=== PATIENT | male | born 1980 | race Caucasian/White ===

== ENCOUNTER 2021-07-31 08:04 | Emergency (ER) | payer OTHER, SELFPAY ==
[2021-07-31 08:24] VITALS: BP 139/96; PULSE 84; RESP 16; TEMP 36.8; O2SAT 97; BMI 28.2
--- NOTE | 2021-07-31 08:56 | ED.URI ---
HPI - URI/Sore Throat General Chief Complaint: Upper Respiratory Symptoms Stated Complaint: asthma Time Seen by Provider: 07/31/21 08:53 Source: patient Mode of arrival: ambulatory Limitations: no limitations History of Present Illness HPI Narrative: chest pain, asthma and hurts to breath for months. Patient has a history of asthma feels that this is all his asthma. patient has no medications for his asthma, current smoker, not vaccinated against COVID. MD elicited complaint: cough Pertinent past history: asthma Onset (ago): month(s) Consistency: intermittent Severity: mild Exacerbating factors: exertion and deep breaths Associated symptoms: denies other symptoms Related Data Previous Rx's Medication Instructions Recorded albuterol sulfate 90 mcg/actuation 2 puff INHALATION Q4-6H PRN #8.5 g 07/31/21 aerosol inhaler prednisone 20 mg tablet 60 mg PO DAILY #12 tab 07/31/21 Allergies Allergy/AdvReac Type Severity Reaction Status Date / Time Sulfa (Sulfonamide Allergy Unknown UNKNOWN Unverified 07/12/20 15:35 Antibiotics) Review of Systems Constitutional: Constitutional: Reports no additional constitutional complaints Eyes: Eyes: Reports no additional eye complaints ENT: Denies dizziness Cardiovascular: Cardiovascular: Reports no additional cardiovascular complaints Respiratory: Respiratory: Reports as per HPI Gastrointestinal: Gastrointestinal: Reports no additional gastrointestinal complaints Musculoskeletal: Musculoskeletal: Reports no additional musculoskeletal complaints Integumentary/Breasts: Skin/Breast: Denies rash Neurologic: Reports system reviewed and no additional complaints, except as documented, Denies dizziness and Denies Sensory deficit (Neuro) Psychiatric: Psychiatric: Denies anxiety [facility] Past Medical History Medical History Asthma Social History Social History Advance Directives: No Advance Directives Information Provided: No Physical Exam Vital Signs: Vital Signs: Last Vital Signs Temp 98.2 F 07/31/21 08:24 Pulse 84 07/31/21 08:24 Resp 16 07/31/21 08:24 BP 139/96 H 07/31/21 08:24 Pulse Ox 97 07/31/21 08:24 Body Mass Index 28.2 Const: General: healthy appearing Nutritional Appearance: average body habitus Orientation/consciousness: oriented to person and patient oriented x3 Limitations: no limitations HENMT: Head: Yes normal to inspection Ears: external ears normal General nose exam: Normal external nose present Mouth: Normal oral and palatal mucosa present and oropharynx normal Throat: Yes posterior oropharynx normal Eyes: General: appearance normal, both eyes and all related structures Neck: Other: supple Neck: Yes normal visual inspection Chest: Chest palpation & inspection: normal inspection of the chest Resp: Other: wheezing right side, cough. Cardio: Jugular venous distension: no JVD Rate: regular rate Rhythm: regular rhythm Heart sounds: S1 normal heart sound present and S2 normal heart sound present GI: Inspection: Yes normal to inspection Palpation (GI): Soft to palpation, nontender and No hepatosplenomegaly present Auscultation: normal bowel sounds : General: Yes no CVA tenderness Back/Spine/Pelvis: Back: no CVA tenderness Skin: General skin exam: no rashes or lesions noted Neuro: General: oriented to person and patient oriented x3 Cranial nerves: Yes CN's II-XII intact bilaterally Motor exam (neuro): 5/5 motor strength present throughout Sensory Exam: No Sensory deficit (Neuro) Extrem: General: Yes normal to inspection Psych: Appearance: grossly normal Course Reevaluation(s) Reevaluation #1: patient with slight wheeze, COVID negative will dc on Albuterol, and prednisone Time: 10:26 MDM - URI/Sore Throat Lab Data Labs: Lab Results 07/31/21 Range/Units 08:58 COVID-19 (MATHEUS) Negative (Negative) COVID-19 Clin Com See Note Discharge Plan Discharge Clinical Impression: Asthma attack Qualifiers: Asthma severity: mild Asthma persistence: persistent Qualified Code(s): J45.31 - Mild persistent asthma with (acute) exacerbation Patient Disposition: Home, Self-Care Instructions: Asthma (ED) Prescriptions: New prednisone 20 mg tablet 60 mg PO DAILY Qty: 12 RF: 0 albuterol sulfate 90 mcg/actuation HFA aerosol inhaler 2 puff inhalation Q4-6H PRN (Reason: shortness of breath or wheezing) Qty: 8.5 RF: 0 Referrals: Physician,None [Primary Care Provider] - 1 week
[2021-07-31] MEDS: predniSONE 20 MG TABLET 60 MG PO (09:31)
[2021-07-31] MEDS: Albuterol Sulfate 90 MCG 8 GM INHALER 4 PUFF INHALE (09:33)
[2021-07-31 09:34] LABS: COVID-19 Test Negative (Negative); IDNOW Serial# 9DD0AD1C
== END 2021-07-31 10:42 | disposition home or self-care (01) ==
PROVIDERS: Emergency Provider Emergency Medicine
DX: J45.31 Mild persistent asthma with (acute) exacerbation (principal); Z20.822 Contact with and (suspected) exposure to COVID-19
CPT/HCPCS: 36415; 87635; 94640; 99283; 99284

== ENCOUNTER 2022-10-25 09:55 | Emergency (ER) | payer MEDICAID, SELFPAY ==
--- NOTE | ~2022-10-25 | CT_ITS ---
EXAMINATION: CT ABDOMEN AND PELVIS WITH CONTRAST CLINICAL INFORMATION: Nausea vomiting and epigastric abdominal pain COMPARISON: CT abdomen pelvis 06/04/2013 TECHNIQUE: Multidetector volumetric images were obtained from the superior aspect of the liver through the pubic symphysis following administration 85 mL of Omnipaque 350 intravenous contrast. Sagittal and coronal reformatted images were obtained on the technologist's workstation. Oral contrast: No This CT examination was performed using dose optimization techniques as appropriate, variously including the following: *Automated exposure control *Adjustment of mA and/or kV according to patient size (this includes techniques or standardized protocols for targeted exams where dose is matched to indication/reason for exam; i.e. extremities or head) *Use of iterative reconstruction technique DLP: 518 mGy-cm FINDINGS: LUNG BASES: The visualized lung bases are unremarkable. LIVER, GALLBLADDER, AND BILIARY TREE: The liver is normal in size, shape, and attenuation. No focal hepatic lesion or biliary ductal dilatation is present. Status post cholecystectomy. PANCREAS: Unremarkable. SPLEEN: Unremarkable. ADRENAL GLANDS: Unremarkable. KIDNEYS AND URETERS: The kidneys are normal in size, shape, and attenuation. No hydronephrosis, hydroureter, or calculi seen. No perinephric stranding. BLADDER: Unremarkable. GASTROINTESTINAL TRACT: Possible small hiatal hernia. Stomach is otherwise unremarkable. Mild sigmoid diverticulosis. No evidence of acute diverticulitis. The colon is decompressed. No dilated bowel loops. No bowel wall thickening. Normal appendix. No free air or ascites. ABDOMINAL WALL: Tiny fat-containing umbilical hernia. LYMPH NODES: No lymphadenopathy. VASCULAR: Normal caliber abdominal aorta. Mild scattered vascular calcifications. PELVIC VISCERA: Unremarkable. OSSEOUS STRUCTURES: No acute fracture or suspicious osseous lesion. CT/CT abdomen pelvis w IV con IMPRESSION: 1. No acute intra-abdominal process identified. 2. Sigmoid diverticulosis. No evidence of acute diverticulitis.
--- NOTE | ~2022-10-25 | XR_ITS ---
EXAMINATION: CR CHEST CLINICAL INFORMATION: Cough. COMPARISON: None TECHNIQUE: Frontal view of the chest was obtained. FINDINGS: The cardiomediastinal silhouette is within normal limits in size. Lungs bilaterally are symmetrically well-inflated. There is mild thickening of the central airways. No focal consolidation, effusion or pneumothorax is seen. Bony structures are unremarkable. XR/XR chest 1V IMPRESSION: Mild thickening of the central airways, suggesting reactive airways disease or bronchitis. No focal pneumonia.
[2022-10-25 09:56] VITALS: BP 144/98; PULSE 83; RESP 18; TEMP 36.4; O2SAT 99; BMI 27.4
--- NOTE | 2022-10-25 10:07 | ED.NAVMDI ---
HPI - Nausea/Vomiting/Diarrhea General Chief complaint: Nausea/Vomiting/Diarrhea Stated complaint: vomiting x 2-3 days Time Seen by Provider: 10/25/22 10:06 Source: patient Mode of arrival: ambulatory History of Present Illness HPI Narrative: 42-year-old male with past medical history of asthma, cholecystectomy, presenting to the ED complaining of upper abdominal discomfort, nausea, vomiting, chills, subjective fever, cough x3 days. Reports decreased p.o. intake. Denies diarrhea/constipation, dysuria/hematuria, recent travel, suspicious food intake, sick contacts, recent antibiotics MD elicited complaint: nausea, vomiting and abdominal pain Onset (ago): day(s) Related Data Previous Rx's Medication Instructions Recorded albuterol sulfate 90 mcg/actuation 2 puff inhalation Q4-6H PRN 07/31/21 aerosol inhaler shortness of breath or wheezing #8.5 grams prednisone 20 mg tablet 60 mg PO DAILY #12 tabs 07/31/21 aluminum-mag hydroxide-simethicone 5 ml PO 5XD PRN dyspepsia #30 mL 10/25/22 200 mg-200 mg-20 mg/5 mL oral susp (Maalox Advanced) famotidine 20 mg tablet (Pepcid) 20 mg PO DAILY #14 tabs 10/25/22 ondansetron 4 mg disintegrating 4 mg PO Q8H PRN nausea and 10/25/22 tablet vomiting #10 tabs Allergies Allergy/AdvReac Type Severity Reaction Status Date / Time Sulfa (Sulfonamide Allergy Unknown UNKNOWN Verified 10/25/22 09:56 Antibiotics) Review of Systems Review of Systems: Constitutional: +Subj Fever, + Chills, + Fatigue, No Malaise ENT/Mouth: No Ear Pain, No Nasal Congestion, No Sinus Pain, No Hoarseness, No sore throat, No Rhinorrhea, No Swallowing Difficulty Eyes: No Eye Pain, No Swelling, No Redness, No Vision Changes Cardiovascular: No Chest Pain, No SOB, No Dyspnea on Exertion, No Orthopnea, No Edema, No Palpitations Respiratory: + Cough, No Sputum, No Wheezing, , No Dyspnea Gastrointestinal: + Nausea, + Vomiting, No Diarrhea, No Constipation, +o Abdominal pain Genitourinary: No irregular bleeding, No Dysuria, No Urinary Frequency, No Hematuria,No Flank Pain, No Urinary Flow Changes, No Hesitancy Musculoskeletal: No joint pain, No Myalgias, No Joint Swelling Skin: No Skin Lesions, No rash Neuro: No Weakness, No Numbness, No Paresthesias, No Loss of Consciousness, No Dizziness, No Headache Yes all other systems are reviewed and are negative Constitutional: Constitutional: Reports as per [facility] Past Medical History Attestation statement: The following information was validated with the patient. Medical History Asthma Social History Social History Alcohol intake: current Smoked in Last 30 Days: Yes Use of substances other than those prescribed or required for medical reasons: No Advance Directives: No Physical Exam Vital Signs: Vital Signs: Last Vital Signs Temp 98.6 F 10/25/22 11:59 Pulse 67 10/25/22 15:24 Resp 18 10/25/22 15:24 BP 168/83 H 10/25/22 15:24 Pulse Ox 100 10/25/22 15:24 O2 Del Method 10/25/22 15:24 BMI result Body Mass Index 27.4 Const: General: cooperative, healthy appearing, no acute distress and diaphoretic Orientation/consciousness: patient oriented x3 Limitations: no limitations HEENT: Head: Yes normal to inspection and Yes atraumatic Ears: hearing grossly normal bilaterally General nose exam: Normal external nose present Face and sinus: Yes normal facial exam Eyes: General: appearance normal, both eyes and all related structures EOM: EOMs intact bilaterally Neck: Neck: Yes normal visual inspection and Yes no meningeal signs Resp: Effort & Inspection: normal respiratory effort and no respiratory distress Auscultation: clear to auscultation bilaterally, no crackles, no rales, no rhonchi and no wheezes Cardio: Rate: regular rate Heart sounds: S1 normal heart sound present and S2 normal heart sound present GI: Inspection: Yes normal to inspection Palpation (GI): Soft to palpation, nontender, no guarding and not rigid : General: Yes no CVA tenderness Back/Spine/Pelvis: Back: no CVA tenderness Skin: Rashes: no rashes Wounds: no wounds Neuro: General: patient oriented x3, tone normal and no meningeal signs Gait exam (Neuro): Normal gait present Extrem: General: Yes normal to inspection Course Course Course Narrative: -1038--leukocytosis of 16.0 > likely reactive from nausea/vomiting rather than severe sepsis. No evidence of infectious etiology at this time -BUN elevated to 21 likely from dehydration -1244--COVID-19/influenza/RSV negative. Removed the baron patient persistently dry heaving, abdomen soft with mild epigastric tenderness will obtain CT for further evaluation in give Benadryl/Reglan. Patient denies any marijuana use XR chest 1V IMPRESSION: Mild thickening of the central airways, suggesting reactive airways disease or bronchitis. No focal pneumonia. -repeat troponin equivocal 1600--CT abdomen pelvis w IV con IMPRESSION: 1.? No acute intra-abdominal process identified. 2.? Sigmoid diverticulosis. No evidence of acute diverticulitis. >> will p.o. challenge -1621--patient tolerated p.o. in the ED about nausea or vomiting. Feels safe for discharge home at this time Results discussed with patient including worrisome signs and symptoms and strict return precautions, and when to return to the emergency department. They verbalized understanding and feel safe for discharge at this time. Medications Administered Discontinued Medications Generic Name Dose Route Start Last Admin Trade Name Freq PRN Reason Stop Dose Admin Albuterol Sulfate 4 puff 10/25/22 11:49 10/25/22 12:03 Albuterol Sulfate 90 Mcg 8 Gm Inhaler INHALE 10/25/22 11:50 4 puff ONCE ONE Administration Diphenhydramine HCl 25 mg 10/25/22 12:40 10/25/22 12:54 Diphenhydramine Hcl 50 Mg/Ml Vial IVPUSH 10/25/22 12:41 25 mg ONCE ONE Administration Famotidine 20 mg 10/25/22 10:12 10/25/22 10:40 Famotidine/Pf 20 Mg/2 Ml Vial IVPUSH 10/25/22 10:13 20 mg ONCE ONE Administration Sodium Chloride 1,000 mls @ 999 mls/hr 10/25/22 10:15 10/25/22 14:16 Ns IV 10/25/22 11:15 Infused .Q1H1M CIERRA Infusion Sodium Chloride 1,000 mls @ 999 mls/hr 10/25/22 10:45 10/25/22 15:59 Ns IV 10/25/22 11:45 Infused .Q1H1M CIERRA Infusion Iohexol 100 ml 10/25/22 14:41 10/25/22 14:41 Iohexol 350 Mg/Ml 100 Ml Infus..Btl IV 10/25/22 14:42 85 ml ONCE ONE Administration Ketorolac Tromethamine 15 mg 10/25/22 10:12 10/25/22 10:39 Ketorolac Tromethamine 15 Mg/Ml Vial IVPUSH 10/25/22 10:13 15 mg ONCE ONE Administration Lidocaine HCl 5 ml 10/25/22 15:16 10/25/22 15:36 Lidocaine Hcl Viscous 2 % 15 Ml Solution MUCOUS MEM 10/25/22 15:17 5 ml ONCE ONE Administration Metoclopramide HCl 10 mg 10/25/22 12:40 10/25/22 12:54 Metoclopramide Hcl 10 Mg/2 Ml Vial IVPUSH 10/25/22 12:41 10 mg ONCE ONE Administration Ondansetron HCl 4 mg 10/25/22 10:07 10/25/22 10:40 Ondansetron Hcl 4 Mg/2 Ml Vial IVPUSH 10/25/22 10:08 4 mg ONCE ONE Administration Prochlorperazine Edisylate 5 mg 10/25/22 15:14 10/25/22 15:36 Prochlorperazine Edisylate 10 Mg/2 Ml Vial IVPUSH 10/25/22 15:15 5 mg ONCE ONE Administration Medical Decision Making Medical Decision Making [facility] Narrative: 42-year-old male with past medical history of asthma, cholecystectomy, presenting to the ED complaining of upper abdominal discomfort, nausea, vomiting, chills, subjective fever, cough x3 days. Reports decreased p.o. intake. On exam vital signs stable, nontoxic appearing, mildly diaphoretic, abdomen soft/nontender, lungs CTA. Concern for viral illness vs gastroenteritis vs atypical ACS vs dehydration/metabolic abnormalities. Lower suspicion for appendicitis/diverticulitis or pancreatitis Plan: EKG, labs, UA, CXR, COVID-19/influenza/RSV testing, IVF, antiemetics Low suspicion for severe sepsis Please refer to course for remaining clinical decision making, interpretation of labs/imaging results, and discussions with consultants and/or family members. Differential Diagnosis Differential Diagnoses: The differential diagnosis associated with the presentation includes as above Lab Data [facility] Lab Attestation statement: I reviewed the patient's lab results. 10/25/22 10:06 10/25/22 10:06 Labs: Lab Results 10/25/22 10/25/22 10/25/22 Range/Units 10:06 10:06 10:06 WBC 16.0 H (4.8-10.8) X10*3/uL RBC 5.93 H (4.60-5.80) X10*6/uL Hgb 15.7 (14.0-18.0) g/dl Hct 47.8 (42.0-52.0) % MCV 80.6 (80.0-98.0) fL MCH 26.5 L (27.0-33.0) pg MCHC 32.8 (31.0-36.0) g/dl RDW 18.0 H (11.0-16.0) % Plt Count 346 (160-400) X10*3/uL MPV 9.2 L (9.4-12.4) fL Immature Gran % (Auto) 0.4 (0.0-0.4) % Neut % (Auto) 73.1 H (45-73) % Lymph % (Auto) 14.0 L (20-40) % Benson % (Auto) 9.3 (2-11) % Eos % (Auto) 2.2 (0-4) % Baso % (Auto) 1.0 (0-2) % Lymph # (Auto) 2.2 (1.2-4.9) X10*3/uL Benson # (Auto) 1.5 H (0.1-1.2) X10*3/uL Eos # (Auto) 0.4 (0.0-0.4) X10*3/uL Baso # (Auto) 0.2 (0.0-0.2) X10*3/uL Abs Immat Gran (auto) 0.07 H (0.00-0.03) X10*3/uL Absolute Neuts (auto) 11.7 H (2.0-8.3) x10*3/uL Absolute Nucleated RBC 0.000 (0.0-0.012) X10*3/uL Nucleated RBC % (auto) 0.0 (0.0-0.2) /100WBC Sodium 138 (135-145) mmol/L Potassium 3.9 (3.3-5.1) mmol/L Chloride 102 (96-108) mmol/L Carbon Dioxide 26 (22-29) mmol/L Anion Gap 14 (12-20) BUN 21 H (9-16) mg/dL Creatinine 1.28 (0.5-1.4) mg/dL Estim Creat Clear Calc 72.0 Estimated GFR > 60 Random Glucose 92 (60-115) mg/dL Lactic Acid (0.5-2.0) mmol/L Calcium 9.9 (8.4-10.2) mg/dL Magnesium 2.1 (1.6-2.6) mg/dL Total Bilirubin 0.9 (0.0-1.0) mg/dL AST 27 (5-37) U/L ALT 27 (0-40) U/L Alkaline Phosphatase 68 (39-117) U/L Troponin I High Sens (<3.5-35.0) ng/L Total Protein 7.9 (6.5-8.0) g/dL Albumin 4.6 (3.5-5.0) g/dL Lipase 18 (8-78) U/L Urine Color Urine Appearance Urine pH (5.0-9.0) Ur Specific [place] (1.005-1.025) Urine Protein (Neg-Trace) mg/dL Urine Glucose (UA) (Negative) mg/dL Urine Ketones (Negative) mg/dL Urine Blood (Negative) Urine Nitrite (Negative) Ur Leukocyte Esterase (Negative) Urine RBC (0-2) /HPF Urine WBC (0-5) /HPF Ur Squamous Epith Cells (0-2) /HPF Urine Bacteria (None Seen) Hyaline Casts (0-2) /LPF Urine Opiates Screen (Not Detect) Urine Fentanyl Screen (Not Detect) Ur Barbiturates Screen (Not Detect) Ur Phencyclidine Scrn (Not Detect) Ur Amphetamines Screen (Not Detect) U Benzodiazepines Scrn (Not Detect) Urine Cocaine Screen (Not Detect) U Marijuana (THC) Screen (Not Detect) Influenza Type A (PCR) NEGATIVE (Negative) Influenza Type B (PCR) NEGATIVE (Negative) RSV RNA Qual (PCR) NEGATIVE (Negative) SARS-CoV-2 RNA (RT-PCR) NEGATIVE (Negative) 12/31/22 12/31/22 12/31/22 Range/Units 10:28 10:59 13:03 WBC (4.8-10.8) X10*3/uL RBC (4.60-5.80) X10*6/uL Hgb (14.0-18.0) g/dl Hct (42.0-52.0) % MCV (80.0-98.0) fL MCH (27.0-33.0) pg MCHC (31.0-36.0) g/dl RDW (11.0-16.0) % Plt Count (160-400) X10*3/uL MPV (9.4-12.4) fL Immature Gran % (Auto) (0.0-0.4) % Neut % (Auto) (45-73) % Lymph % (Auto) (20-40) % Benson % (Auto) (2-11) % Eos % (Auto) (0-4) % Baso % (Auto) (0-2) % Lymph # (Auto) (1.2-4.9) X10*3/uL Benson # (Auto) (0.1-1.2) X10*3/uL Eos # (Auto) (0.0-0.4) X10*3/uL Baso # (Auto) (0.0-0.2) X10*3/uL Abs Immat Gran (auto) (0.00-0.03) X10*3/uL Absolute Neuts (auto) (2.0-8.3) x10*3/uL Absolute Nucleated RBC (0.0-0.012) X10*3/uL Nucleated RBC % (auto) (0.0-0.2) /100WBC Sodium (135-145) mmol/L Potassium (3.3-5.1) mmol/L Chloride (96-108) mmol/L Carbon Dioxide (22-29) mmol/L Anion Gap (12-20) BUN (9-16) mg/dL Creatinine (0.5-1.4) mg/dL Estim Creat Clear Calc Estimated GFR Random Glucose (60-115) mg/dL Lactic Acid 1.7 (0.5-2.0) mmol/L Calcium (8.4-10.2) mg/dL Magnesium (1.6-2.6) mg/dL Total Bilirubin (0.0-1.0) mg/dL AST (5-37) U/L ALT (0-40) U/L Alkaline Phosphatase (39-117) U/L Troponin I High Sens < 3.5 (<3.5-35.0) ng/L Total Protein (6.5-8.0) g/dL Albumin (3.5-5.0) g/dL Lipase (8-78) U/L Urine Color Urine Appearance Urine pH (5.0-9.0) Ur Specific [place] (1.005-1.025) Urine Protein (Neg-Trace) mg/dL Urine Glucose (UA) (Negative) mg/dL Urine Ketones (Negative) mg/dL Urine Blood (Negative) Urine Nitrite (Negative) Ur Leukocyte Esterase (Negative) Urine RBC (0-2) /HPF Urine WBC (0-5) /HPF Ur Squamous Epith Cells (0-2) /HPF Urine Bacteria (None Seen) Hyaline Casts (0-2) /LPF Urine Opiates Screen Not Detected (Not Detect) Urine Fentanyl Screen Not Detected (Not Detect) Ur Barbiturates Screen Not Detected (Not Detect) Ur Phencyclidine Scrn Not Detected (Not Detect) Ur Amphetamines Screen Not Detected (Not Detect) U Benzodiazepines Scrn Not Detected (Not Detect) Urine Cocaine Screen Not Detected (Not Detect) U Marijuana (THC) Screen Not Detected (Not Detect) Influenza Type A (PCR) (Negative) Influenza Type B (PCR) (Negative) RSV RNA Qual (PCR) (Negative) SARS-CoV-2 RNA (RT-PCR) (Negative) 10/25/22 10/25/22 Range/Units 13:03 15:20 WBC (4.8-10.8) X10*3/uL RBC (4.60-5.80) X10*6/uL Hgb (14.0-18.0) g/dl Hct (42.0-52.0) % MCV (80.0-98.0) fL MCH (27.0-33.0) pg MCHC (31.0-36.0) g/dl RDW (11.0-16.0) % Plt Count (160-400) X10*3/uL MPV (9.4-12.4) fL Immature Gran % (Auto) (0.0-0.4) % Neut % (Auto) (45-73) % Lymph % (Auto) (20-40) % Benson % (Auto) (2-11) % Eos % (Auto) (0-4) % Baso % (Auto) (0-2) % Lymph # (Auto) (1.2-4.9) X10*3/uL Benson # (Auto) (0.1-1.2) X10*3/uL Eos # (Auto) (0.0-0.4) X10*3/uL Baso # (Auto) (0.0-0.2) X10*3/uL Abs Immat Gran (auto) (0.00-0.03) X10*3/uL Absolute Neuts (auto) (2.0-8.3) x10*3/uL Absolute Nucleated RBC (0.0-0.012) X10*3/uL Nucleated RBC % (auto) (0.0-0.2) /100WBC Sodium (135-145) mmol/L Potassium (3.3-5.1) mmol/L Chloride (96-108) mmol/L Carbon Dioxide (22-29) mmol/L Anion Gap (12-20) BUN (9-16) mg/dL Creatinine (0.5-1.4) mg/dL Estim Creat Clear Calc Estimated GFR Random Glucose (60-115) mg/dL Lactic Acid (0.5-2.0) mmol/L Calcium (8.4-10.2) mg/dL Magnesium (1.6-2.6) mg/dL Total Bilirubin (0.0-1.0) mg/dL AST (5-37) U/L ALT (0-40) U/L Alkaline Phosphatase (39-117) U/L Troponin I High Sens < 3.5 (<3.5-35.0) ng/L Total Protein (6.5-8.0) g/dL Albumin (3.5-5.0) g/dL Lipase (8-78) U/L Urine Color Dark Yellow Urine Appearance Clear Urine pH 5.5 (5.0-9.0) Ur Specific [place] >= 1.030 H (1.005-1.025) Urine Protein Trace (Neg-Trace) mg/dL Urine Glucose (UA) Negative (Negative) mg/dL Urine Ketones 80 (Negative) mg/dL Urine Blood Trace H (Negative) Urine Nitrite Negative (Negative) Ur Leukocyte Esterase Negative (Negative) Urine RBC 3-5 H (0-2) /HPF Urine WBC 0-5 (0-5) /HPF Ur Squamous Epith Cells 0-2 (0-2) /HPF Urine Bacteria None Seen (None Seen) Hyaline Casts 3-5 (0-2) /LPF Urine Opiates Screen (Not Detect) Urine Fentanyl Screen (Not Detect) Ur Barbiturates Screen (Not Detect) Ur Phencyclidine Scrn (Not Detect) Ur Amphetamines Screen (Not Detect) U Benzodiazepines Scrn (Not Detect) Urine Cocaine Screen (Not Detect) U Marijuana (THC) Screen (Not Detect) Influenza Type A (PCR) (Negative) Influenza Type B (PCR) (Negative) RSV RNA Qual (PCR) (Negative) SARS-CoV-2 RNA (RT-PCR) (Negative) Independent Interpretation I performed an independent interpretation of an: EKG and Plain X-Ray Radiology Impression Discussion of test interpretation with radiology: I have reviewed the radiologist's reading. Discharge Plan Discharge Clinical Impression: Nausea & vomiting Patient Disposition: Home, Self-Care Instructions: Acute Nausea and Vomiting (ED) Additional Instructions: Your blood work showed evidence of you vomiting, otherwise unremarkable. CT scan does not show any acute findings Please practice of bland diet. Zofran it is for nausea, take as needed. A cure unable the eat or drink, persistent nausea/vomiting, develops fever or abdominal pain return to the Prescriptions: New ondansetron 4 mg tablet,disintegrating 4 mg PO Q8H PRN (Reason: nausea and vomiting) Qty: 10 0RF alum-mag hydroxide-simeth [Maalox Advanced] 200-200-20 mg/5 mL suspension 5 ml PO 5XD PRN (Reason: dyspepsia) Qty: 30 0RF Rx Instructions: administer between meals and at bedtime famotidine [Pepcid] 20 mg tablet 20 mg PO DAILY Qty: 14 0RF No Action prednisone 20 mg tablet 60 mg PO DAILY Qty: 12 0RF albuterol sulfate 90 mcg/actuation HFA aerosol inhaler 2 puff inhalation Q4-6H PRN (Reason: shortness of breath or wheezing) Qty: 8.5 0RF Referrals: [facility] [Provider Group] Physician,None [Primary Care Provider] - Interventions: ED Discharge Assessment Last Done: 10/25/22 16:41 Discharge Date/Time: 10/25/22 16:42
[2022-10-25 10:12] LABS: MANUAL DIFF FLAG NO
[2022-10-25 10:13] LABS: Basophils Absolute Auto 0.2 X10*3/uL (0.0-0.2); Eosinophils Absolute Auto 0.4 X10*3/uL (0.0-0.4); Eosinophils Percent Auto 2.2 % (0-4); Hematocrit 47.8 % (42.0-52.0); Hemoglobin 15.7 g/dl (14.0-18.0); Imm Gran Abs Auto 0.07 X10*3/uL (0.00-0.03); Imm Gran Pct Auto 0.4 % (0.0-0.4); Lymphocytes Absolute Auto 2.2 X10*3/uL (1.2-4.9); Mean Corpuscular HGB Conc 32.8 g/dl (31.0-36.0); Mean Corpuscular Hemoglobin 26.5 pg (27.0-33.0); Mean Corpuscular Volume 80.6 fL (80.0-98.0); Mean Platelet Volume 9.2 fL (9.4-12.4); Monocytes Absolute Auto 1.5 X10*3/uL (0.1-1.2); Monocytes Percent Auto 9.3 % (2-11); Neutrophils Absolute Auto 11.7 x10*3/uL (2.0-8.3); Neutrophils Percent Auto 73.1 % (45-73); Platelet Count 346 X10*3/uL (160-400); Red Blood Count 5.93 X10*6/uL (4.60-5.80)
--- OUTSIDE RECORDS SUMMARY | 2022-10-25 10:21 | XMS_ITS ---
:1980 Author Organization [facility] nter Address [address] [place] [address] [address] [address] [place] [address]- Encounter Date(s): 11/16/20 - 11/17/20 [facility] [address] [place], [place] [address] [phone] Encounter Diagnosis Strep pharyngitis (Discharge Diagnosis) - 11/17/20 Discharge Disposition: 01 Home or Self Care Attending Physician: SHEREEN BULLOCK MD Admitting Physician: PHYSICIAN , EMERGENCY Allergies, Adverse Reactions, Alerts Substance Reaction Severity Status sulfa drugs rash Active Discharge Medications acetaminophen-oxycodone (Percocet 5 mg-325 mg oral tab let) Status: Ordered Start Date: 09/08/20 Stop Date: 09/13/20 1 tab(s) Oral every six (6) hours as nee ded Pain for 5 Days. Acute pain exception. Refills: 0. Ordering provider: VERA RUDOLPH MD amoxicillin-clavulanate (Augmentin 875 mg-125 mg oral tablet) Status: Ordered Start Date: 11/17/20 Stop Date: 11/24/20 1 tab(s) Oral every twelve (12) hours fo r 7 Days. This prescription is valid for 10 days after date of issue.. Refills: 0. Ordering provider: SHEREEN BULLOCK MD doxycycline (doxycycline hyclate 100 mg oral capsule) Status: Ordered Start Date: 09/08/20 Stop Date: 09/18/20 100 Milligram Oral two (2) times a day for 10 Days. Re fills: 0. 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 Procedures Procedure Date Related Diagnosis Body Site Status R wrist Completed Vital Signs Most recent to oldest 1 2 3 [Reference Range]: Temperature Temporal Artery 37 DegC 1 [36-37.9 DegC] (11/16/20 10:20 PM) Temperature Oral [36-37.9 36.8 DegC DegC] (11/17/20 1:30 AM) Heart Rate Monitored [60-100 101 bpm 94 bpm 100 bpm bpm] *HI* (11/17/20 12:40 AM) (11/16/20 10:2 0 PM) (11/17/20 1:30 AM) Respiratory Rate [14-20 18 br/min 18 br/min 17 br/mi n br/min] (11/17/20 1:30 AM) (11/17/20 12:40 AM) (11/16/20 10 :20 PM) Blood Pressure [90-140/60-90 133/88 mmHg 119/84 mmHg 128 /82 mmHg mmHg] (11/17/20 1:30 AM) (11/17/20 12:40 AM) (11/16/20 10 :20 PM) Mean Arterial Pressure 107 mmHg 94 mmHg 104 mmHg (11/17/20 1:30 AM) (11/17/20 12:40 AM) (11/16/20 10 :20 PM) 1Result Comment: oral temp Results Laboratory List Name Date Automated Differential 11/17/20 CBC with Diff 11/17/20 COVID 19-LRHP 11/17/20 Chemistry Panel 7 (CHEM7) 11/17/20 Glomerular Filtration Rate Calculation 11/17/20 Mononucleosis Screen 11/17/20 Rapid Strep Test 11/17/20 Most recent to oldest [Reference Range]: 1 Rapid Strep A POSITIVE *ABN* (11/17/20 12:14 AM) COVID19 (SARS CoV-2) [Not Detected] Not Detected (11/17/20 12:14 AM) COVID19 (SARS CoV-2) Interp SARS-CoV-2 RNA not detecte d. *NA* (11/17/20 12:14 AM) Creatinine [0.7-1.3 mg/dL] 0.7 mg/dL (11/17/20 12:14 AM) [place]a Scrn Negative (11/17/20 12:14 AM) Basophil Auto [0.0-1.0 %] 0.5 % (11/17/20 12:14 AM) BUN [7-18 mg/dL] 12 mg/dL (11/17/20 12:14 AM) Chloride Level [98-107 mEq/L] 101 mEq/L (11/17/20 12:14 AM) CO2 [21-32 mmol/L] 26 mmol/L (11/17/20 12:14 AM) Eos Auto [1.0-3.0 %] 2.3 % (11/17/20 12:14 AM) Glucose Level [70-100 mg/dL] 94 mg/dL (11/17/20 12:14 AM) Hct [42.0-52.0 %] 42.6 % (11/17/20 12:14 AM) Hgb [14.0-18.0 gm/dL] 14.2 gm/dL (11/17/20 12:14 AM) Lymph Auto [22.0-44.0 %] 7.6 % *LOW* (11/17/20 12:14 AM) MCH [27.0-31.0 pg] 29.2 pg (11/17/20 12:14 AM) MCHC [31.0-37.0 gm/dL] 33.3 gm/dL (11/17/20 12:14 AM) MCV [88.0-100.0 fl] 87.7 fl *LOW* (11/17/20 12:14 AM) [place] Auto [3.0-7.0 %] 5.0 % (11/17/20 12:14 AM) MPV [7.0-11.1 fl] 6.4 fl *LOW* (11/17/20 12:14 AM) Neutro Auto [40.0-70.0 %] 84.6 % *HI* (11/17/20 12:14 AM) Platelet [150-450 k/mcL] 334 k/mcL (11/17/20 12:14 AM) Potassium Level [3.5-5.1 mEq/L] 4.3 mEq/L (11/17/20 12:14 AM) RBC [4.70-6.10 million/mcL] 4.86 million/mcL (11/17/20 12:14 AM) RDW [11.5-13.5 %] 13.7 % *HI* (11/17/20 12:14 AM) Sodium Level [136-145 mEq/L] 136 mEq/L (11/17/20 12:14 AM) WBC [4.5-11.0 k/mcL] 18.3 k/mcL *HI* (11/17/20 12:14 AM) Abs Neutrophil [1.60-6.60 k/mcL] 15.45 k/mcL *HI* (11/17/20 12:14 AM) Abs Lymphocyte [0.90-3.90 k/mcL] 1.40 k/mcL (11/17/20 12:14 AM) Abs Monocyte [0.20-1.00 k/mcL] .92 k/mcL (11/17/20 12:14 AM) Abs Eosinophil [0.00-0.40 k/mcL] .41 k/mcL *HI* (11/17/20 12:14 AM) Abs Basophil [0.00-0.10 k/mcL] .09 k/mcL (11/17/20 12:14 AM) eGFR-AA [>=60 mL/min/1.73m^2] >60 mL/min/1.73m^2 (11/17/20 12:14 AM) eGFR-MATHEUS [>=60 mL/min/1.73m^2] >60 mL/min/1.73m^2 (11/17/20 12:14 AM) Anion Gap 9 *NA* (11/17/20 12:14 AM) Radiology Reports true Exam Date Time Procedure Performing Provider Status 11/17/20 12:[address] NECK W/CONTRAST Trung RT(R)(CT), Pernell; Lito (Verified) Notes:(CT NECK W/CONTRAST) Reason For Exam: Other-See Special Instructions(CT NECK W/CONTRAST) Radiation Dose Estimate: CTDI(mGy) DLP(mGy-cm) 0.0510 1.8000 0.0510 1.8000 8.3000 295.1000ACC#: [id number] Examination: CT NECK W/CONTRAST Clinical Indication: ; Pain, R/O Abscess COMPARISON: None Technique: Standard CT of the Neck was performed. This CT exam was performed using one or more of the following dose reduction techniques: Automated exposure control, adjustment of the mA and/or kV according to patient size, or use of iterative reconstruction technique. IV Contrast was administered. 80mL of Omnipaque 350 was administered intravenously without immediatecomplications. FINDINGS: No masses, drainable fluid collections or lymphadenopathy. Salivary glands: Parotid and submandibular salivary glands appear normal. Lymph nodes: No enlarged adenopathy. Airway: Patent without deviation. Osseous structures: No acute findings. Mild mucosal thickening involving bilateral maxillary sinuses. IMPRESSION: No acute findings. Final Dictated: 11/17/2020 0:58 am LILLIANA MORGAN MD Signed (Electronic Signature): 11/17/2020 1:00 am Signed by: LILLIANA MORGAN MD Social History Social History Type Response Smoking Status 10 or more cigarettes (1/2 p ack or more)/day in last 30 days entered on: 11/17/20 Sex Male Hospital Discharge Instructions Patient Yckraffli14/23/2021 01:30:15Pharyngitis, Strep (Confirmed)Pharyngitis: Strep (Confirmed) You have had a positive test for strep throat. Strep throat is a contagious illness. It's spread by coughing, kissing, sharing glasses or eating utensils, or by touching others after touching your mouth or nose. Symptoms include throat pain that is worse with swallowing, aching all over, headache, swollen lymph nodes at the front of the neck, and red swollen tonsils sometimes with white patches and fever. It's treated with antibiotic medicine. This should help you start to feel better in 1 to 2 days. Home care ???Rest at home. Drink plenty of fluids so you won't get??dehydrated. ???No work or school for the first 2 days of taking the antibiotics. You can then return to school or work if you are feeling better, have been taking the antibiotic for at least 24 hours and don't have a fever.?Take??antibiotic medicine for the full 10 days, even if you feel better. This is very important to ensure the infection is treated completely.??It's also important to prevent medicine-resistant germs from developing.??If you were given an antibiotic shot, you don't need any more antibiotics. ???You may use acetaminophen??or ibuprofen to control pain or fever, unless another medicine was prescribed for this. Talk with your healthcare provider before taking these medicines if you have??chronic liver or kidney disease or if you have??had a stomach ulcer or gastrointestinal bleeding. ???Throat lozenges or sprays help reduce pain. Gargling with warm saltwater will also reduce throat pain. Dissolve 1/2 teaspoon of salt in 1 glass of warm water. This may be useful just before meals.?Soft foods and cool or warm fluids are best. Don't eat salty or spicy foods. Follow-up care Follow up with your healthcare provider or our staff if you don't get better over the next week. When to get medical advice Call your healthcare provider right away or get immediate medical care if any of these occur: ???Fever of 100.4??F (38??C) or higher, or as directed by your healthcare provider ???New or worsening ear pain, sinus pain, or headache ???Painful lumps in the back of neck ???Stiff neck ???Lymph nodes??getting larger or becoming soft in the middle ???You have trouble swallowing liquids or you can't??open your mouth wide because of??throat pain ???Signs of dehydration. These include very dark urine or no urine, sunken eyes, and dizziness. ???Noisy breathing ???Muffled voice ???Rash Call 911 Call 911right away if you: ???Have trouble breathing ???Can't swallow or talk Prevention Here are steps you can take to help prevent an infection: ???Wash your hands often with soap and clean, running water for at least 20 seconds. ???Don???t have close contact with people who have sore throats, colds, or other upper respiratory infections. ???Don???t smoke, and stay away from secondhand smoke. ?? 4146-5409 [employer]. [address], [place] [address]. All rights reserved. This information is not intended as a substitute for professional medical care. Always follow your healthcare professional's instructions. Mental Status 11/16/20 Barriers to Learning None evident Languages German
--- OUTSIDE RECORDS SUMMARY | 2022-10-25 10:21 | XMS_ITS ---
:1980 Author Organization [facility] nter Address [address] [place] [address] [address] [address] [place] [address]- Encounter Date(s): 04/27/21 - 04/27/21 [facility] [address] [place], [place] [address] [place] [phone] Encounter Diagnosis Asthma flare (Discharge Diagnosis) - 04/27/21 Discharge Disposition: 01 Home or Self Care Attending Physician: MIR RUFFIN MD Admitting Physician: PHYSICIAN , EMERGENCY Allergies, Adverse Reactions, Alerts Substance Reaction Severity Status sulfa drugs rash Active Discharge Medications albuterol (albuterol 90 mcg/inh inhalation aerosol) Status: Ordered Start Date: 04/06/21 2 puff(s) Inhalation every four (4) hour s as needed Shortness of breath. Refills: 0. Ordering provider: JONATHAN PLUMMER MD albuterol (albuterol 90 mcg/inh inhalation aerosol) Status: Ordered Start Date: 04/27/21 2 puff(s) Inhalation every four (4) hour s as needed Shortness of breath. Refills: 0. Ordering provider: MIR RUFFIN MD amoxicillin (amoxicillin 875 mg oral tablet) Status: Ordered Start Date: 04/06/21 Stop Date: 04/16/21 1 tab(s) Oral two (2) times a day for 10 Days. This prescription is valid for 10 days after date of issue.. Refills: 0. Ordering provider: JONATHAN PLUMMER MD fluticasone nasal (Flonase 50 mcg/inh nasal spray) Status: Ordered Start Date: 04/06/21 1 puff(s) Nasal once (1) a day. each nostril. Refills: 0. Ordering provider: JONATHAN PLUMMER MD predniSONE (predniSONE 20 mg oral tablet) Status: Ordered Start Date: 04/27/21 Stop Date: 05/02/21 1 tab(s) Oral two (2) times a day for 5 Days. Refills: 0. 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 Procedures Procedure Date Related Diagnosis Body Site Status R wrist Completed Vital Signs Most recent to oldest [Reference 1 2 3 Range]: Temperature Temporal Artery 36.6 DegC [36-37.9 DegC] (04/27/21 4:17 PM) Temperature Oral [36-37.9 DegC] 36.7 DegC (04/27/21 6:30 PM) Peripheral Pulse Rate [60-100 bpm] 73 bpm 72 bpm (04/27/21 6:30 PM) (04/27/21 4:17 PM) Heart Rate Monitored [60-100 bpm] 69 bpm 62 bpm 76 bpm (04/27/21 6:15 PM) (04/27/21 5:45 PM) (04/27/21 5:15 P M) Respiratory Rate [14-20 br/min] 18 br/min 16 br/min 16 br/min (04/27/21 6:30 PM) (04/27/21 6:15 PM) (04/27/21 5:45 P M) Blood Pressure [90-140/60-90 mmHg] 106/77 mmHg 115/81 mmHg 115/69 mmHg (04/27/21 6:30 PM) (04/27/21 5:45 PM) (04/27/21 5:15 P M) Mean Arterial Pressure 96 mmHg 89 mmHg (04/27/21 5:45 PM) (04/27/21 5:15 PM) Results Radiology Reports Exam Date Time Procedure Performing Provider Status 04/27/21 4:54 PM DONY CHEST PORTABLE Arnaldo RTR, Araceli; Auth ( Verified) Notes:(DONY CHEST PORTABLE) [facility] For Exam: [facility] [id number] Examination: Xray, Chest, 1 View Clinical Indication: Short of breath Comparison: Portable chest August 2020 Findings: Single frontal view of the chest demonstrates the cardiomediastinal silhouette to be within normal limits. There are no pleural effusions or pneumothoraces identified. There are no focal areas of consolidation. Impression: No acute cardiopulmonary disease. Final Dictated: 04/27/2021 4:54 pm OFELIA CORONEL MD Signed (Electronic Signature): 04/27/2021 4:55 pm Signed by: OFELIA CORONEL MD Social History Social History Type Response Smoking Status 10 or more cigarettes (1/2 p ack or more)/day in last 30 days entered on: 04/27/21 Sex Male Hospital Discharge Instructions Patient [id number]/03/2021 18:29:30Asthma, Acute (Adult)Asthma (Adult) Asthma is a disease where the medium and??small air passages in the lung go into spasm and restrict air flow. Inflammation and swelling of the airways cause further blockage. During an acute asthma attack, these factors cause trouble breathing, wheezing, cough, and chest tightness. An asthma attack can be triggered by many things. Common triggers include infections such as the common cold, bronchitis, and pneumonia. Irritants such as smoke or pollutants in the air, very cold air,emotional upset, and exercise can also trigger an attack. In??many adults with asthma, allergies to??dust, mold, pollen, and animal dander can cause an asthma attack. Skipping doses of daily asthma medicine can also bring on an asthma attack. Asthma can be controlled using the??correct medicines prescribed by your healthcare provider and staying away from known triggers including allergens and irritants. Home care ???Take prescribed medicine exactly at the times advised. If you need medicine such as from a handheld inhaler or aerosol breathing machine more than every 4 hours, contact your healthcare provider or get medical care right away. If you are prescribed an antibiotic or prednisone, take all of the medicine as prescribed. Keep taking it even if you are feeling better after a few days. ???Don't smoke. Stay away from the smoke of others. ???Some people with asthma find their symptoms get worse when they take aspirin and non-steroidal orfever-reducing medicines such as ibuprofen and naproxen. Talk with your healthcare provider if you think this may apply to you. Follow-up care Follow up with your healthcare provider, or as advised. Always bring all of your current medicines to any appointments with your healthcare provider. Also bring a complete list of medicines, even??those not taken for asthma. If you don't already have one, talk with your healthcare provider about making your own Asthma Action Plan. A pneumonia (pneumococcal)??vaccine and yearly flu shot (every fall) are advised. Ask your provider about this. When to get medical advice Call your healthcare provider or get medical care right away if any of these occur:?More wheezing or shortness of breath ???Need to use your inhalers more often than normal without relief ???Fever of 100.4??F (38??C) or higher, or as directed by your provider ???Coughing up lots of dark-colored or bloody sputum (mucus) ???Chest pain with each breath ???If you use a peak flow meter as part of an Asthma Action Plan, and you are still in the yellow zone (50% to 80%) 15 minutes after using inhaler medicine. Call 911 Call 911 if any of these occur: ???Trouble walking or talking because you are short of breath ???If you use a peak flow meter as part of an Asthma Action Plan, and??you are still in the red zone(less than 50%) 15 minutes after using inhaler medicine ???Lips or fingernails turn mcmillan, purple, or blue ???Feeling faint or loss of consciousness ?? [id number] [employer]. [address] [place] [address], [place] [address]. All rights reserved. This information is not intended as a substitute for professional medical care. Always follow your healthcare professional's instructions. Follow Up Care04/27/2021 16:15:42With:[facility] Physicians Address: [place], [place] Business (1) When:3 Days Mental Status 04/27/21 Barriers to Learning None evident Languages Samoan
--- OUTSIDE RECORDS SUMMARY | 2022-10-25 10:21 | XMS_ITS ---
:1980 Author Organization [facility] nter Address [address] [place] [address] [address] [address] [place] [address]- Care Team Providers Name Role Phone Sebas Fernandez M.D. Primary Care Physician Encounter Date(s): 01/18/20 - 01/18/[address] [address]- [place] [phone] Encounter Diagnosis Acute cholecystitis (Discharge Diagnosis) - 01/18/20 Discharge Disposition: 07 Against Medical Advice Attending Physician: JESSICA VALDES MD Admitting Physician: JESSICA VALDES MD Allergies, Adverse Reactions, Alerts Substance Reaction Severity Status sulfa drugs rash Active Discharge Medications buprenorphine-naloxone (Suboxone 4 mg-1 mg sublingual film) two (2) times a day. cephalexin (cephalexin 500 mg oral capsule) 1 cap three (3) times a day. FLUoxetine (Prozac 20 mg oral capsule) 1 cap Oral daily at bedtime. gabapentin (Neurontin 100 mg oral capsule) 1 cap three (3) times a day. 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 Procedures Procedure Date Related Diagnosis Body Site Status R wrist Completed Vital Signs Most recent to oldest 1 2 3 [Reference Range]: Temperature Oral [36-37.9 DegC] 36.7 DegC 36.8 DegC (01/18/20 8:03 PM) (01/18/20 3:51 PM) Peripheral Pulse Rate [60-100 82 bpm bpm] (01/18/20 3:51 PM) Heart Rate Monitored [60-100 88 bpm 78 bpm 82 bpm bpm] (01/18/20 8:03 PM) (01/18/20 4:30 PM) (01/18/20 4:0 0 PM) Respiratory Rate [14-20 br/min] 18 br/min 16 br/min 15 br/min (01/18/20 8:03 PM) (01/18/20 4:30 PM) (01/18/20 4:0 0 PM) Blood Pressure [90-140/60-90 134/74 mmHg 117/66 mmHg 124 /75 mmHg mmHg] (01/18/20 8:03 PM) (01/18/20 4:30 PM) (01/18/20 4:0 0 PM) Mean Arterial Pressure 79 mmHg 98 mmHg (01/18/20 4:30 PM) (01/18/20 4:00 PM) Results Laboratory List Name Date ABO/Rh 01/18/20 Antibody Screen 01/18/20 Automated Differential 01/18/20 Basic Metabolic Panel (BMP) 01/18/20 Blood Bank Specimen 01/18/20 CBC with Diff 01/18/20 Glomerular Filtration Rate Calculation 01/18/20 Magnesium Level 01/18/20 Phosphorus Level 01/18/20 Hepatic Function Panel 01/18/20 Lipase 01/18/20 Extra Blue Label 01/18/20 Extra Lavender Label 01/18/20 Most recent to oldest [Reference Range]: 1 2 Draw Hold Comment Collected Collected *NA* *NA* (01/18/20 3:56 PM) (01/18/20 3:56 PM) Creatinine [0.6-1.3 mg/dL] 0.7 mg/dL (01/18/20 5:37 PM) Albumin Level [3.4-5.0 gm/dL] 3.2 gm/dL *LOW* (01/18/20 3:56 PM) Alk Phos [45-117 unit/L] 245 unit/L *HI* (01/18/20 3:56 PM) ALT [12-78 unit/L] 138 unit/L *HI* (01/18/20 3:56 PM) AST [15-37 unit/L] 102 unit/L *HI* (01/18/20 3:56 PM) Basophil Auto [0.0-1.0 %] 0.4 % (01/18/20 5:37 PM) Bili Total [0.2-1.0 mg/dL] 0.3 mg/dL (01/18/20 3:56 PM) BUN [7-18 mg/dL] 19 mg/dL *HI* (01/18/20 5:37 PM) Calcium Level [8.5-10.1 mg/dL] 8.3 mg/dL *LOW* (01/18/20 5:37 PM) Chloride Level [98-107 mEq/L] 105 mEq/L (01/18/20 5:37 PM) CO2 [21-32 mEq/L] 28 mEq/L (01/18/20 5:37 PM) Eos Auto [1.0-3.0 %] 4.5 % *HI* (01/18/20 5:37 PM) Glucose Level [70-100 mg/dL] 83 mg/dL (01/18/20 5:37 PM) Hct [42.0-52.0 %] 39.0 % *LOW* (01/18/20 5:37 PM) Hgb [14.0-18.0 gm/dL] 12.4 gm/dL *LOW* (01/18/20 5:37 PM) Lipase Level [73-393 unit/L] 68 unit/L *LOW* (01/18/20 3:56 PM) Lymph Auto [22.0-44.0 %] 13.3 % *LOW* (01/18/20 5:37 PM) Magnesium Level [1.8-2.4 mg/dL] 2.2 mg/dL (01/18/20 5:37 PM) MCH [27.0-31.0 pg] 27.9 pg (01/18/20 5:37 PM) MCHC [31.0-37.0 gm/dL] 31.7 gm/dL (01/18/20 5:37 PM) MCV [88.0-100.0 fl] 88.2 fl (01/18/20 5:37 PM) [place] Auto [3.0-7.0 %] 6.0 % (01/18/20 5:37 PM) MPV [7.0-11.1 fl] 8.3 fl (01/18/20 5:37 PM) Neutro Auto [40.0-70.0 %] 75.8 % *HI* (01/18/20 5:37 PM) Platelet [150-450 k/mcL] 304 k/mcL (01/18/20 5:37 PM) Potassium Level [3.5-5.1 mEq/L] 4.0 mEq/L (01/18/20 5:37 PM) RBC [4.70-6.10 million/mcL] 4.43 million/mcL *LOW* (01/18/20 5:37 PM) RDW [11.5-13.5 %] 13.2 % (01/18/20 5:37 PM) Sodium Level [136-145 mEq/L] 139 mEq/L (01/18/20 5:37 PM) Total Protein [6.4-8.2 gm/dL] 7.2 gm/dL (01/18/20 3:56 PM) WBC [4.5-11.0 k/mcL] 17.3 k/mcL *HI* (01/18/20 5:37 PM) PO4 [2.5-4.9 mg/dL] 3.6 mg/dL (01/18/20 5:37 PM) Abs Neutrophil [1.60-6.60 k/mcL] 13.15 k/mcL *HI* (01/18/20 5:37 PM) Abs Lymphocyte [0.90-3.90 k/mcL] 2.30 k/mcL (01/18/20 5:37 PM) Abs Monocyte [0.20-1.00 k/mcL] 1.05 k/mcL *HI* (01/18/20 5:37 PM) Abs Eosinophil [0.00-0.40 k/mcL] .78 k/mcL *HI* (01/18/20 5:37 PM) Abs Basophil [0.00-0.10 k/mcL] 0.06 k/mcL (01/18/20 5:37 PM) Bili Direct [0.0-0.2 mg/dL] 0.2 mg/dL (01/18/20 3:56 PM) AB Screen Interp Negative (01/18/20 5:37 PM) ABORh Interp A Pos (01/18/20 5:37 PM) eGFR-AA [>=60 mL/min/1.73m^2] >60 mL/min/1.73m^2 (01/18/20 5:37 PM) eGFR-MATHEUS [>=60 mL/min/1.73m^2] >60 mL/min/1.73m^2 (01/18/20 5:37 PM) Anion Gap 6 *NA* (01/18/20 5:37 PM) Room Service Waiter/Waitress #[id number] *NA* (01/18/20 5:37 PM) Dancing Master #[id number] *NA* (01/18/20 5:37 PM) Radiology Reports Exam Date Time Procedure Performing Provider Status 01/18/20 4:53 PM USN RIGHT UPPER QUADRANT Jean Hoyos RDMS [facility] (Verified) Notes:(USN RIGHT UPPER QUADRANT) Reason For Exam: Abdomen PainACC#: [id number] Examination: USN RIGHT UPPER QUADRANT Clinical Indication: Abdomen Pain; Comparison: None. FINDINGS: Pancreas: Pancreas is not well-visualized due to overlying bowel gas. Liver: The liver appears homogeneous in echotexture. There is no intrahepatic biliary ductal dilatation. There are no masses. Common Bile Duct: (CBD): Normal in size. Inferior Vena Cava (IVC): The intrahepatic inferior vena cava appears patent. Gallbladder: The gallbladder is abnormal containing sludge and stones. There is gallbladder wall thickening measuring 6 mm. No pericholecystic fluid. Right kidney: Normal in size. There is no hydronephrosis, nephrolithiasis or perinephric fluid collections. IMPRESSION: Abnormal gallbladder containing sludge and stones. There is thickening of the gallbladder wall measuring 6 mm. Findings are suspicious for acute cholecystitis. Nuclear medicine HIDA scan could further characterize if felt to be clinically indicated. Final Dictated: 01/18/2020 4:54 pm JERMAINE FORBES MD Signed (Electronic Signature): 01/18/2020 4:56 pm Signed by: EJRMAINE FORBES MD Social History Social History Type Response Smoking Status Current Every Day Smoker; Ty pe: Cigarettes; Tobacco Frequency: >= 5 / day; Tobacco last used within: < 30 days; Previous treatment: None; Patient willing to receive cessation counseling? No entered on: 01/13/17 Sex Male Treatment Plan Future AppointmentsAppointment Date:01/19/2020 01:50:00 PM Scheduled Provider:MIR FARR MD Location:SURG Appointment Type:Surgery Functional Status 01/18/20 Safety Measures in Use Call device within reach, Adequate room lighting, Bed in low position, Side rails up x2, Wheels locked Mental Status 01/18/20 Languages Grenadian Preferred Language Grenadian 01/18/20 Barriers to Learning None evident
--- OUTSIDE RECORDS SUMMARY | 2022-10-25 10:21 | XMS_ITS ---
:[address] [facility] nter Address [address] [facility] [address] [address] [place] [address]- Encounter Date(s): 01/06/20 - 01/06/20 [facility] [address] [place], [place] [address] [phone] Encounter Diagnosis Eruption due to drug (Discharge Diagnosis) - 01/06/20 Discharge Disposition: 01 Home or Self Care Attending Physician: TAO MONTENEGRO Admitting Physician: PHYSICIAN , EMERGENCY Allergies, Adverse Reactions, Alerts Substance Reaction Severity Status sulfa drugs rash Active Discharge Medications albuterol (albuterol 90 mcg/inh inhalation aerosol) 2 puff(s) Inhalation every four (4) hour s as needed Shortness of breath. Refills: 0. Ordering provider: JONATHAN PLUMMER MD albuterol (albuterol CFC free 90 mcg/inh inhalation ae rosol) 2 puff(s) Inhalation every four (4) hour s as needed Shortness of breath. Refills: 0. Ordering provider: ROBERTO RESENDEZ DO buprenorphine-naloxone (Suboxone 8 mg-2 mg sublingual tablet) 2 tab(s) Sublingual once (1) a day. fluticasone nasal (Flonase 0.05 mg/inh nasal spray) 1 puff(s) Nasal once (1) a day for 30 Days. each nostr il. Refills: 0. Ordering provider: AIRAM BRUCE fluticasone-salmeterol (Advair 250 mcg-50 mcg inhalati on powder) 1 puff(s) Inhalation two (2) times a day for 90 Days. Refills: 3. Ordering provider: AIRAM BRUCE fluticasone-salmeterol (Advair 500 mcg-50 mcg inhalati on powder) 1 puff(s) Inhalation two (2) times a day. Refills: 0. Ordering provider: JONATHAN PLUMMER MD hydrOXYzine (Atarax 25 mg oral tablet) 1 tab(s) Oral three (3) times a day. Refills: NR. Ordering provider: TAO MONTENEGRO methylPREDNISolone (Medrol 4 mg oral tablet) 1 packet(s) Oral one time for 6 Days. as directed on package labeling. Refills: NR. 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 Procedures Procedure Date Related Diagnosis Body Site Status R wrist Completed Vital Signs Most recent to oldest [Reference Range]: 1 Temperature Oral [36-37.9 DegC] 37 DegC (01/06/20 5:32 PM) Peripheral Pulse Rate [60-100 bpm] 87 bpm (01/06/20 5:32 PM) Respiratory Rate [14-20 br/min] 18 br/min (01/06/20 5:32 PM) Blood Pressure [90-140/60-90 mmHg] 134/93 mmHg (01/06/20 5:32 PM) Mean Arterial Pressure 107 mmHg (01/06/20 5:32 PM) Social History Social History Type Response Smoking Status Current Every Day Smoker; Ty pe: Cigarettes; Tobacco Frequency: >= 5 / day; Tobacco last used within: < 30 days; Previous treatment: None; Patient willing to receive cessation counseling? No entered on: 01/13/17 Sex Male Hospital Discharge Instructions Patient Coxdcotub91/13/2020 18:25:24Allergic Reaction, DrugMedicine Reaction: Allergic You are having an allergic reaction to a medicine you have taken. This may cause an itchy rash and sometimes swelling of various parts of the body. It could also cause trouble swallowing or breathing. The rash may take a few hours or up to??2 weeks to go away. In the future, remember to tell your healthcare provider about your allergy to this medicine so that medicines of this type won't be used again . Any??medicine can cause an allergic reaction. But the most allergic reactions are caused by: ???Penicillin and related medicines ???Aspirin ???Ibuprofen ???Seizure medicines Vaccines may also trigger allergies.??People whose parents or siblings have allergies are at a higher risk of developing a medicine allergy. Allergy testing may sometimes be needed to figure out the cause. Symptoms may occur within minutes, hours, or even weeks after exposure to the medicine. It can be a mild or severe reaction, or potentially life threatening.??Most of us think of allergic reactions when we have a rash or itchy skin. Symptoms can include: ???Rash, hives, redness, welts, blisters ???Itching, burning, stinging, pain ???Dry, flaky, cracking, scaly skin ???Belly (abdominal) cramps or nausea or stomach pain ???Fever. ??Sometimes fever is the only symptom of a drug reaction. In older adults, the risk of fever increases with the number of medicines the person takes. More severe symptoms include: ???Swelling of the face or lips, or drooling ???Trouble swallowing, feeling like your throat is closing ???Trouble breathing, wheezing ???Hoarse voice or trouble speaking ???Severe nausea or vomiting or diarrhea ?Feeling faint or lightheaded, rapid heart rate ???Blistering of the skin, or ulcers in the mouth or on the genitals Home care The goal of treatment is to help relieve the symptoms, and get you feeling better. Mild to medium medicine reactions usually respond quickly to antihistamines, steroids, and stopping the medicine. The rash will usually fade over several days. But it can sometimes last a couple of weeks. Over the next c ouple of days, there may be times when it is gets a little worse, and then better again. Here are some things to do: ???Throw the medicine away and don???t take it again. The next reaction could be the same or worse. ???Call your health care provider to discuss adding this medicine allergy reaction to your electronic medical record. ???When getting a new medicine, always tell the healthcare provider that you are allergic to this medicine. Make certain the provider writes it down in your medical record. ???Avoid tight clothing and anything that heats up your skin (hot showers or baths, direct sunlight). Heat will make itching worse. ???An ice pack will relieve local areas of intense itching and redness.??To make an ice pack, put ice cubes in a plastic bag that seals at the top. Wrap the bag in a??clean, thin??towel or cloth. Don???t put ice directly on the skin. ???To help prevent an infection, don't scratch the affected area. Scratching may worsen the reaction. It can damage your skin and lead to an infection. Always check the affected site for signs of an infection. ???Your provider may give you a prescription antihistamine. ???If you are not given a prescription antihistamine, oral??diphenhydramine is an cpms-cwu-cewzwle antihistamine available at pharmacies and grocery stores. This may be used to reduce itching if large areas of the skin are involved.??This antihistamine may make you sleepy, so be careful using it in the daytime or when going to school, working, or driving. Note:??Don???t use??diphenhydramine if you have glaucoma or if you are a man with trouble urinating due to an enlarged prostate. There are other antihistamines that cause less drowsiness and??are a good choice for daytime use. Ask your pharmacist or health care provider for suggestions. ???Don't??use diphenhydramine cream on your skin. It can cause a further skin reaction??for some people. ???Contact your healthcare provider and ask what can be used on the affected area to help decrease the itching. Follow-up care Follow up with your healthcare provider, or as advised if your symptoms do not continue to improve or they get worse. Call 911 Call 911 if any of these occur: ???Shortness of breath ???Cool, moist, pale skin ???Swelling in the face, eyelids, mouth, tongue, or lips ???Drooling ???Trouble breathing or swallowing, wheezing ???New or worsening swelling in the mouth, throat, or tongue ???Hoarse voice or trouble speaking?Fainting or loss of consciousness ???Rapid heart rate ???Feeling of dizziness or weakness or a sudden drop in blood pressure ???Feeling of doom ???Feeling lightheaded ???Severe nausea, vomiting, or diarrhea When to seek medical advice Call your healthcare provider right away if any of these occur: ???Continuing or recurring symptoms ???Nausea, abdominal cramps or stomach pain ???Spreading areas of itching, redness or swelling ???Blistering of the skin or sores or ulcers in the mouth or on the genitals ???Signs of infection: oSpreading redness oIncreased pain or swelling oFever of 100.4??F (38??C) or above lasting for 24 to 48 hours, or as directed by your provider oFluid or colored drainage from the??affected??area ?? 4586-6263 [employer]. [address] [place] [address]. All rights reserved. This information is not intended as a substitute for professional medical care. Always follow your healthcare professional's instructions. Follow Up Care01/06/2020 17:32:40With:Follow up with Health Department Address:Unknown When:3 Days Comments:Call for follow-up appointment Mental Status 01/06/20 Barriers to Learning None evident Languages Persian
--- OUTSIDE RECORDS SUMMARY | 2022-10-25 10:21 | XMS_ITS ---
:[address] [facility] nter Address [address] [place] [address] [address] [address] [place] [address]- Encounter Date(s): 04/06/21 - 04/06/21 [facility] [address] [place], [place] [address] [phone] Encounter Diagnosis Encounter for laboratory testing for COVID-19 virus (Discharge Diagnosis) - 04/06/21 Acute sinusitis (Discharge Diagnosis) - 04/06/21 Asthmatic bronchitis (Discharge Diagnosis) - 04/06/21 Discharge Disposition: 01 Home or Self Care Attending Physician: JONATHAN PLUMMER MD Admitting Physician: PHYSICIAN , EMERGENCY Allergies, Adverse Reactions, Alerts Substance Reaction Severity Status sulfa drugs rash Active Discharge Medications albuterol (albuterol 90 mcg/inh inhalation aerosol) Status: Ordered Start Date: 04/06/21 2 puff(s) Inhalation every four (4) hour s as needed Shortness of breath. Refills: 0. Ordering provider: JONATHAN PLUMMER MD amoxicillin (amoxicillin 875 mg oral tablet) [...] Refills: 0. 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 Procedures Procedure Date Related Diagnosis Body Site Status R wrist Completed Vital Signs Most recent to oldest [Reference Range]: 1 Temperature Oral [36-37.9 DegC] 36.8 DegC (04/06/21 12:29 PM) Peripheral Pulse Rate [60-100 bpm] 75 bpm (04/06/21 12:29 PM) Respiratory Rate [14-20 br/min] 19 br/min (04/06/21 12:29 PM) Blood Pressure [90-140/60-90 mmHg] 110/68 mmHg (04/06/21 12:29 PM) Results Laboratory List Name Date COVID 19-LRHP 04/06/21 Most recent to oldest [Reference Range]: 1 COVID19 (SARS CoV-2) PCR [Not Detected] Not Detected (04/06/21 12:50 PM) COVID19 (SARS CoV-2) Interp SARS-CoV-2 RNA not detecte d. *NA* (04/06/21 12:50 PM) Social History Social History Type Response Smoking Status 10 or more cigarettes (1/2 p ack or more)/day in last 30 days entered on: 04/06/21 Sex Male Treatment Plan Diagnostic Tests PendingThroat Culture 04/06/21 Hospital Discharge Instructions Patient Scpjnrftc16/12/2021 12:47:26Sinusitis (Antibiotic Treatment)Sinusitis (Antibiotic Treatment) The sinuses are air-filled spaces within the bones of the face. They connect to the inside of the nose.??Sinusitis??is an inflammation of the tissue that lines the sinuses. Sinusitis can occur during acold. It can also happen due to allergies to pollens and other particles in the air. Sinusitis can cause symptoms of sinus congestion and a feeling of fullness. A sinus infection causes fever, headache, and facial pain. There is often green or yellow fluid draining from the nose or into the back of the throat (post-nasal drip). You have been given antibiotics to treat this condition. Home care ???Take the full course of antibiotics as instructed. Don't stop taking them, even when you feel better. ???Drink plenty of water, hot tea, and other liquids as directed by the healthcare provider. This may help thin nasal mucus. It also may help your sinuses drain fluids. ???Heat may help soothe painful areas of your face. Use a towel soaked in hot water. Or, coat finisher the shower and direct the warm spray onto your face. Using a vaporizer along with a menthol rub at night may also help soothe symptoms.?An??expectorant??with guaifenesin may help thin nasal mucus and help your sinuses drain fluids. Talk with your provider or pharmacists before taking an dmpk-hfw-ivzqqlj (OTC) medicine if you have any questions about it or its side effects.. ???You can use an OTC??decongestant,??unless a similar medicine was prescribed to you. Nasal sprays work the fastest. Use one that contains phenylephrine or oxymetazoline. First blow your nose gently. Then use the spray. Don't use these medicines more often than directed on the label. If you do, your symptoms may get worse. You may also take pills that contain pseudoephedrine. Don???t use products that combine multiple medicines. This is because side effects may be increased. Read labels. You can also ask the pharmacist for help. (People with high blood pressure should not use decongestants. They can raise blood pressure.) Talk with your provider or pharmacist if you have any questions about the medicine.. ???OTC??antihistamines??may help if allergies contributed to your sinusitis. Talk with your provideror pharmacist if you have any questions about the medicine.. ???Don't use nasal rinses or irrigation during an acute sinus infection, unless your healthcare provider tells you to. Rinsing may spread the infection to other areas in your sinuses. ???Use acetaminophen or ibuprofen to control pain, unless another pain medicine was prescribed to you. If you have chronic liver or kidney disease or ever had a stomach ulcer, talk with your healthcareprovider before using these medicines. Never give aspirin to anyone under age 18 who is ill with a fever. It may cause severe liver damage. ???Don't smoke. This can make symptoms worse. Follow-up care Follow up with your healthcare provider, or as advised. When to seek medical advice Call your healthcare provider if any of these occur: ???Facial pain or headache that gets worse ???Stiff neck ???Unusual drowsiness or confusion ???Swelling of your forehead or eyelids ???Symptoms don't go away in 10 days ???Vision problems, such as blurred or double vision ???Fever of??100.4??F (38??C)??or higher, or as directed by your healthcare provider Call 911 Call 911 if any of these occur: ???Seizure ???Trouble breathing ???Feeling dizzy or faint ???Fingernails, skin or lips look blue, purple , or mcmillan Prevention Here are steps you can take to help prevent an infection: ???Keep good hand washing habits. ???Don???t have close contact with people who have sore throats, colds, or other upper respiratory infections. ???Don???t smoke, and stay away from secondhand smoke. ???Stay up to date with of your vaccines. ?? [phone] [employer]. [address] [place] [address]. All rights reserved. This information is not intended as a substitute for professional medical care. Always follow your healthcare professional's instructions. 04/06/2021 12:47:26Bronchitis With Wheezing (Adult)Viral or Bacterial Bronchitis with Wheezing??(Adult) Bronchitis is an infection of the air passages. It often occurs during a cold and is usually caused by a virus. Symptoms include cough with mucus (phlegm) and low-grade fever. This illness is contagious during the first few days and is spread through the air by coughing and sneezing, or by direct contact (touching the sick person and then touching your own eyes, nose, or mouth). If there is a lot of inflammation, air flow is restricted. The air passages may also go into spasm, especially if you have asthma. This causes wheezing and difficulty breathing even in people who do not have asthma. Bronchitis usually lasts 7 to 14 days. The wheezing should improve with treatment during the first week. An inhaler is often prescribed to relax the air passages and stop wheezing. Antibiotics will be prescribed if your doctor thinks there is also a secondary bacterial infection. Home care ???If symptoms are severe, rest at home for the first 2 to 3 days. When you go back to your usual activities, don't let yourself get too tired. ???Dont s'moke. Also avoid being exposed to secondhand smoke. ???You may use bnyz-xde-gzbwthb medicine to control fever or pain, unless another medicine was prescribed. Note: If you have chronic liver or kidney disease or have ever had a stomach ulcer or gastrointestinal bleeding, talk with your healthcare provider before using these medicines. Also talk to yourprovider if you are taking medicine to prevent blood clots.) Aspirin should never be given to anyoneyounger than 18 years of age who is ill with a viral infection or fever. It may cause severe liver or brain damage. ???Your appetite may be poor, so a light diet is fine. Stay well hydrated by drinking 6 to 8 glassesof fluids per day (such as water, soft drinks, sports drinks, juices, tea, or soup). Extra fluids will help loosen secretions in the nose and lungs. ???Xivg-fud-ssvdcdb cough, cold, and sore-throat medicines will not shorten the length of the illness, but they may be helpful to reduce symptoms. (Note: Don't use decongestants if you have high blood pressure.) ???If you were given an inhaler, use it exactly as directed. If you need to use it more often than prescribed, your condition may be worsening. If this happens, contact your healthcare provider. ???If prescribed, finish all antibiotic medicine, even if you are feeling better after only a few days. Follow-up care Follow up with your healthcare provider, or as advised. If you had an X-ray or ECG (electrocardiogram), a specialist will review it. You will be notified of any new findings that may affect your care. If you are age 65 or older, or if you have a chronic lung disease or condition that affects your immune system, or you smoke, ask your healthcare provider about getting a pneumococcal vaccine and a yearly flu shot (influenza vaccine). When to seek medical advice Call your healthcare provider right away if any of these occur: ???Fever of 100.4??F (38??C) or higher, or as directed by your healthcare provider ???Coughing up increasing amounts of colored sputum ???Weakness, drowsiness, headache, facial pain, ear pain, or a stiff neck Call 911 Call 911 if any of these occur. ???Coughing up blood ???Worsening weakness, drowsiness, headache, or stiff neck ???Increased wheezing not helped with medication, shortness of breath, or pain with breathing ?? [phone] [employer]. [address] [place] [address], [place] [address]. All rights reserved. This information is not intended as a substitute for professional medical care. Always follow your healthcare professional's instructions. 04/06/2021 12:47:26COVID 19 Testing Fact Sheet (Custom)FACT SHEET FOR PATIENTS Coronavirus Disease (COVID-19) February 2019 You are being given this Fact Sheet because your sample(s) was tested for the Coronavirus Disease 2019 (COVID-19). This Fact Sheet contains information to help you understand the risks and benefits of using this test for the diagnosis of COVID-19. After reading this Fact Sheet, if you have questions or would like to discuss the information provided, please talk to your healthcare provider. ??? For the most up to date information on COVID- 19 please visit the [facility] Coronavirus Disease 2019 (COVID-19) webpage: ??? https://www.cdc.gov/COVID19 What is COVID-19? COVID-19 is caused by the SARS-CoV-2 virus. The virus, which can cause mild to severe respiratory illness, was first identified in [facility], and has now spread globally, including the [place]. There is limited information available to characterize the spectrum of clinical illness associated with COVID-19 but it likely spreads to others when a person shows signs or symptoms of being sick (e.g., fever, coughing, difficulty breathing, etc.). What is the Bio[employer]?? RP2.1 Test? The test is designed to detect the virus that causes COVID-19 in addition to 21 other pathogens causing the respiratory infections in respiratory specimens, such as nasal swabs. This test can also detect 21 other common pathogens that cause respiratory infections. If you have a negative result for theother 21 pathogens, it means that those pathogens were not found in your sample. What is the Xpert?Xpress SARS-CoV-2 test, Aptima?SARS-CoV-2 assay,??Simplexa?COVID-19 Direct,??or??ID NOWTM??COVID-19 test? These tests are designed to detect the virus that causes COVID-19 in respiratory specimens, for example nasal or oral swabs. Why was my sample tested? You were tested because your healthcare provider believes you may have been exposed to the virus that causes COVID-19 based on your signs and symptoms (e.g., fever, cough, difficulty breathing), and/orbecause: ??? You live in or have recently traveled to a place where transmission of COVID-19 is known to occur, and/or ??? You have been in close contact with an individual suspected of or confirmed to have COVID-19. Testing of the samples will help find out if you may have COVID-19. What are the known and potential risks and benefits of the test? Potential risks include: ??? Possible discomfort or other complications that can happen during sample collection. ??? Possible incorrect test result (see below for more information). Potential benefits include: ??? The results, along with other information, can help your healthcare provider make informed recommendations about your care. ??? This test may help rule out or identify other causes of respiratory infection detected by this test or potential coinfections. ??? The results of this test may help limit the spread of COVID-19 to your family and others in yourcommunity. Where can I go for updates and more information? The most up-to-date information on COVID-19 is available at the CDC General webpage: https://www.cdc.gov/COVID19. In addition, please also contact your healthcare provider with any questions/concern FACT SHEET FOR PATIENTS Coronavirus Disease (COVID-19) February 2019 What does it mean if I have a positive test result? If you have a positive test result, it is very likely that you have COVID-19. Therefore, it is also likely that you may be placed in isolation to avoid spreading the virus to others. There is a very small chance that this test can give a positive result that is wrong (a false positive result). Your healthcare provider will work with you to determine how best to care for you based on the test results along with medical history, and your symptoms. If you have a positive result for another respiratory pathogen (e.g., Influenza A), your healthcare provider will determine the best way to care for you based on the test results along with other factors in your medical history. What does it mean if I have a negative test result? A negative test result means that the virus thatcauses COVID-19 was not found in your sample. For COVID-19, a negative test result for a sample collected while a person has symptoms usually means that COVID-19 did not cause your recent illness. This test can also detect 21 other common pathogens that cause respiratory infections. If you have anegative result for the other 21 pathogens, it means that those pathogens were not found in your sample. However, it is possible for this test to give a negative result that is incorrect (false negative) in some people with COVID-19. This means that you could possibly still have COVID-19 even though the test is negative. If this is the case, your healthcare provider will consider the test result together with all other aspects of your medical history (such as symptoms, possible exposures, and geographical location of places you have recently traveled) in deciding how to care for you. It is important that you work with your healthcare provider to help you understand the next steps you should take. Is this test FDA-approved or cleared? No. This test is not yet approved or cleared by the [place] FDA. When there are no FDA-approved or cleared tests available, and other criteria aremet, FDA can make tests available under an emergency access mechanism called an Emergency Use Authorization (EUA). The EUA for this test is supported by the [place] of Health and Human Service???s (HHS???s) declaration that circumstances exist to justify the emergency use of in vitro diagnostics forthe detection and/or diagnosis of the virus that causes COVID-19. This EUA will remain in effect (meaning this test can be used) for the duration of the COVID-19 declaration justifying emergency of IVDs, unless it is terminated or revoked by FDA (after which the testmay no longer be used). Where can I go for updates and more information? The most up-to-date information on COVID-19 is available at the CDC General webpage: https://www.cdc.gov/COVID19. In addition, please also contact your healthcare provider with any questions/concerns. Follow Up Care04/06/2021 12:28:45With:[facility] Address: [address] [place], [place] [id number]- Business (1) When:5 to 7 days Comments:Medication as directed. Return if any problems. Mental Status 6/12/21 Barriers to Learning None evident Languages Kinyarwanda
--- OUTSIDE RECORDS SUMMARY | 2022-10-25 10:21 | XMS_ITS ---
:1980 Author Organization [facility] nter Address [address] [facility] [address] [address] [place] [address]- Encounter Date(s): 05/15/21 - 05/16/21 [facility] [address] [place], [place] [address] [phone] Encounter Diagnosis Acute asthma exacerbation (Discharge Diagnosis) - 05/16/21 Discharge Disposition: 01 Home or Self Care Attending Physician: STEPHANIE DUMONT MD, V Admitting Physician: PHYSICIAN , EMERGENCY Allergies, Adverse Reactions, Alerts Substance Reaction Severity Status sulfa drugs rash Active Discharge Medications albuterol (albuterol 2.5 mg/0.5 mL inhalation solution ) Status: Ordered Start Date: 05/16/21 0.5 Milliliter Inhalation every six (6) hours. Refills : 0. Ordering provider: STEPHANIE DUMONT MD, V albuterol (albuterol 90 mcg/inh inhalation aerosol) Status: [...] Refills: 0. Ordering provider: MIR RUFFIN MD predniSONE (predniSONE 20 mg oral tablet) Status: Ordered Start Date: 05/16/21 Stop Date: 05/21/21 60 Milligram Oral once (1) a day for 5 Days. Refills: 0. 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 Procedures Procedure Date Related Diagnosis Body Site Status R wrist Completed Vital Signs Most recent to oldest 1 2 3 [Reference Range]: Temperature Temporal Artery 36.5 DegC [36-37.9 DegC] (05/15/21 9:01 PM) Peripheral Pulse Rate [60-100 88 bpm bpm] (05/15/21 9:01 PM) Heart Rate Monitored [60-100 72 bpm 71 bpm 68 bpm bpm] (05/16/21 2:00 AM) (05/16/21 1:30 AM) (05/16/21 1:0 0 AM) Respiratory Rate [14-20 br/min] 20 br/min 18 br/min 17 br/min (05/16/21 2:00 AM) (05/16/21 1:30 AM) (05/16/21 1:0 0 AM) Blood Pressure [90-140/60-90 102/81 mmHg 110/79 mmHg 127 /78 mmHg mmHg] (05/16/21 2:00 AM) (05/16/21 1:30 AM) (05/16/21 1:0 0 AM) Mean Arterial Pressure 86 mmHg 94 mmHg 88 mmHg (05/16/21 2:00 AM) (05/16/21 1:30 AM) (05/16/21 1:0 0 AM) Results Laboratory List Name Date Automated Differential 05/15/21 CBC with Diff 05/15/21 COVID 19-LRHC 05/15/21 Chemistry Panel 7 (CHEM7) 05/15/21 Glomerular Filtration Rate Calculation 05/15/21 NT-proBNP 05/15/21 Troponin-I 05/15/21 Most recent to oldest [Reference Range]: 1 COVID-19 (SARS CoV-2) PCR [Not Detected] Not Detected (05/15/21 11:31 PM) COVID-19 (SARS CoV-2) Interp SARS CoV-2 RNA is not pre sent in the sample. *NA* (05/15/21 11:31 PM) Creatinine [0.7-1.3 mg/dL] 0.8 mg/dL (05/15/21 11:31 PM) Troponin-I Interp [Normal <=0.05 ng/ml] Normal <=0.05 ng/ml 1 *NA* (05/15/21 11:31 PM) Basophil Auto [0.0-1.0 %] 1.0 % (05/15/21 11:31 PM) BUN [7-18 mg/dL] 22 mg/dL *HI* (05/15/21 11:31 PM) Chloride Level [98-107 mEq/L] 111 mEq/L *HI* (05/15/21 11:31 PM) CO2 [21-32 mmol/L] 24 mmol/L (05/15/21 11:31 PM) Eos Auto [1.0-3.0 %] 6.6 % *HI* (05/15/21 11:31 PM) Glucose Level [70-100 mg/dL] 88 mg/dL (05/15/21 11:31 PM) Hct [42.0-52.0 %] 48.0 % (05/15/21 11:31 PM) Hgb [14.0-18.0 gm/dL] 15.0 gm/dL (05/15/21 11:31 PM) Lymph Auto [22.0-44.0 %] 33.2 % (05/15/21 11:31 PM) MCH [27.0-31.0 pg] 29.4 pg (05/15/21 11:31 PM) MCHC [31.0-37.0 gm/dL] 31.3 gm/dL (05/15/21 11:31 PM) MCV [88.0-100.0 fl] 94.2 fl (05/15/21 11:31 PM) [place] Auto [3.0-7.0 %] 7.6 % *HI* (05/15/21 11:31 PM) MPV [7.0-11.1 fl] 6.9 fl *LOW* (05/15/21:31 PM) Neutro Auto [40.0-70.0 %] 51.6 % (05/15/21 11:31 PM) Platelet [150-450 k/mcL] 258 k/mcL (05/15/21 11:31 PM) Potassium Level [3.5-5.1 mEq/L] 4.6 mEq/L (05/15/21 11:31 PM) RBC [4.70-6.10 million/mcL] 5.10 million/mcL (05/15/21 11:31 PM) RDW [11.5-13.5 %] 13.5 % (05/15/21 11:31 PM) Sodium Level [136-145 mEq/L] 141 mEq/L (05/15/21 11:31 PM) WBC [4.5-11.0 k/mcL] 8.9 k/mcL (05/15/21 11:31 PM) Troponin-I [0.015-0.050 ng/mL] <0.015 ng/mL (05/15/21 11:31 PM) Abs Neutrophil [1.60-6.60 k/mcL] 4.58 k/mcL (05/15/21 11:31 PM) Abs Lymphocyte [0.90-3.90 k/mcL] 3.00 k/mcL (05/15/21 11:31 PM) Abs Monocyte [0.20-1.00 k/mcL] .68 k/mcL (05/15/21 11:31 PM) Abs Eosinophil [0.00-0.40 k/mcL] .59 k/mcL *HI* (05/15/21 11:31 PM) Abs Basophil [0.00-0.10 k/mcL] .09 k/mcL (05/15/21 11:31 PM) eGFR-AA [>=60 mL/min/1.73m^2] >60 mL/min/1.73m^2 (05/15/21 11:31 PM) eGFR-MATHEUS [>=60 mL/min/1.73m^2] >60 mL/min/1.73m^2 (05/15/21 11:31 PM) Anion Gap 6 *NA* (05/15/21 11:31 PM) PBNP [5-125 pg/mL] 8 pg/mL (05/15/21 11:31 PM) 1Result Comment: Normal. Consider serial measurement if clinically indicated. Radiology Reports Exam Date Time Procedure Performing Provider Status 05/16/21 12:03 AM DONY CHEST PORTABLE Yovani RTR, Crystal; Auth (Verified) Notes:(DONY CHEST PORTABLE) Reason For Exam: Other-See Special InstructionsACC#: [id number] Examination: Xray, Chest, 1 View Clinical Indication: Asthma, short of breath Comparison: Portable chest April 27, 2021 Findings: Single frontal view of the chest demonstrates the cardiomediastinal silhouette to be within normal limits. There are no pleural effusions or pneumothoraces identified. There are no focal areas of consolidation. Impression: No acute cardiopulmonary disease. Final Dictated: 05/16/2021 0:07 am OFELIA CORONEL MD Signed (Electronic Signature): 05/16/2021 0:08 am Signed by: OFELIA CORONEL MD Social History Social History Type Response Smoking Status 10 or more cigarettes (1/2 p ack or more)/day in last 30 days entered on: 04/27/21 Sex Male Hospital Discharge Instructions Patient Cfjhoqrdy62/22/2021 02:00:46Asthma, Acute (Adult)Asthma (Adult) Asthma is a disease [...] ???Feeling faint or loss of consciousness ?? [phone] [employer]. [address] [place] [address]. All rights reserved. This information is not intended as a substitute for professional medical care. Always follow your healthcare professional's instructions. Follow Up Care05/15/2021 21:00:40With:[facility]. Address: [address] [place] [address]- Business (1) When:3 Days Comments:Call for follow-up appointmentIf symptoms worsen, go to Emergency Dept Mental Status 05/15/21 Barriers to Learning None evident Languages Vietnamese
--- OUTSIDE RECORDS SUMMARY | 2022-10-25 10:22 | XMS_ITS ---
:1980 Author Organization [facility] Address [address] [place] [address] [address] [address] [place] [address]- Care Team Providers Name Role Phone Sebas Fernandez M.D. 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 Procedures Procedure Date Related Diagnosis Body Site Status R wrist Completed Vital Signs Most recent to oldest 1 2 3 [Reference Range]: Temperature Oral [36-37.9 DegC] 36.8 DegC 36.7 DegC 36.8 DegC (06/09/20 9:03 PM) (06/09/20 7:29 PM) (06/09/20 5:2 0 PM) Peripheral Pulse Rate [60-100 89 bpm 66 bpm 80 bpm bpm] (06/09/20 9:03 PM) (06/09/20 7:29 PM) (06/09/20 5:2 0 PM) Respiratory Rate [14-20 br/min] 16 br/min 18 br/min 16 br/min (06/09/20 9:03 PM) (06/09/20 7:29 PM) (06/09/20 5:2 0 PM) Blood Pressure [90-140/60-90 122/87 mmHg 127/85 mmHg 96/ 58 mmHg mmHg] (06/09/20 9:03 PM) (06/09/20 7:29 PM) (06/09/20 5:2 0 PM) Mean Arterial Pressure 98 mmHg (06/09/20 9:03 PM) Results Laboratory List Name Date Alcohol, Ethanol 06/09/20 Automated Differential 06/09/20 CBC with Diff 06/09/20 COVID 19-LRHP 06/09/20 Chemistry Panel 7 (CHEM7) 06/09/20 Glomerular Filtration Rate Calculation 06/09/20 Most recent to oldest [Reference Range]: 1 COVID19 (SARS CoV-2) [Not Detected] Not Detected (06/09/20 3:50 PM) COVID19 (SARS CoV-2) Interp SARS-CoV-2 RNA not detecte d. *NA* (06/09/20 3:50 PM) Creatinine [0.7-1.3 mg/dL] 0.9 mg/dL (06/09/20 3:50 PM) Basophil Auto [0.0-1.0 %] 1.0 % (06/09/20 3:50 PM) BUN [7-18 mg/dL] 20 mg/dL *HI* (06/09/20 3:50 PM) Chloride Level [98-107 mEq/L] 108 mEq/L *HI* (06/09/20 3:50 PM) CO2 [21-32 mmol/L] 29 mmol/L (06/09/20 3:50 PM) Eos Auto [1.0-3.0 %] 4.8 % *HI* (06/09/20 3:50 PM) Ethanol (Alc) Level 0.003 gm/dL *NA* (06/09/20 3:50 PM) Glucose Level [70-100 mg/dL] 98 mg/dL (06/09/20 3:50 PM) Hct [42.0-52.0 %] 42.2 % (06/09/20 3:50 PM) Hgb [14.0-18.0 gm/dL] 13.8 gm/dL *LOW* (06/09/20 3:50 PM) Lymph Auto [22.0-44.0 %] 23.9 % (06/09/20 3:50 PM) MCH [27.0-31.0 pg] 28.6 pg (06/09/20 3:50 PM) MCHC [31.0-37.0 gm/dL] 32.6 gm/dL (06/09/20 3:50 PM) MCV [88.0-100.0 fl] 87.7 fl *LOW* (06/09/20 3:50 PM) [place] Auto [3.0-7.0 %] 4.0 % (06/09/20 3:50 PM) MPV [7.0-11.1 fl] 7.1 fl (06/09/20 3:50 PM) Neutro Auto [40.0-70.0 %] 66.3 % (06/09/20 3:50 PM) Platelet [150-450 k/mcL] 271 k/mcL (06/09/20 3:50 PM) Potassium Level [3.5-5.1 mEq/L] 4.3 mEq/L (06/09/20 3:50 PM) RBC [4.70-6.10 million/mcL] 4.81 million/mcL (06/09/20 3:50 PM) RDW [11.5-13.5 %] 12.9 % (06/09/20 3:50 PM) Sodium Level [136-145 mEq/L] 140 mEq/L (06/09/20 3:50 PM) WBC [4.5-11.0 k/mcL] 7.0 k/mcL (06/09/20 3:50 PM) Abs Neutrophil [1.60-6.60 k/mcL] 4.63 k/mcL (06/09/20 3:50 PM) Abs Lymphocyte [0.90-3.90 k/mcL] 1.70 k/mcL (06/09/20 3:50 PM) Abs Monocyte [0.20-1.00 k/mcL] .28 k/mcL (06/09/20 3:50 PM) Abs Eosinophil [0.00-0.40 k/mcL] .34 k/mcL (06/09/20 3:50 PM) Abs Basophil [0.00-0.10 k/mcL] .07 k/mcL (06/09/20 3:50 PM) eGFR-AA [>=60 mL/min/1.73m^2] >60 mL/min/1.73m^2 (06/09/20 3:50 PM) eGFR-MATHEUS [>=60 mL/min/1.73m^2] >60 mL/min/1.73m^2 (06/09/20 3:50 PM) Anion Gap 3 *NA* (06/09/20 3:50 PM) Social History Social History Type Response Smoking Status Current Every Day Smoker; Ty pe: Cigarettes; Tobacco Frequency: >= 5 / day; Tobacco last used within: < 30 days; Previous treatment: None; Patient willing to receive cessation counseling? No entered on: 01/13/17 Sex Male Hospital Discharge Instructions Patient Fonsrmcqm03/15/2020 20:25:20Suicidal, 72-Hour HoldSuicidal Thoughts (72- Hour Hold) Your doctor has determined that your thoughts and actions are suicidal and there is a risk that you may try to harm yourself if you leave here. This is most often a sign of depression or excess anger at yourself or someone else. With your protection and well-being in mind, you have been placed on a legal 72-hour hold so that you can be evaluated by a psychiatrist. What is??a 72-hour hold? The law requires that you must be held for up to 72 hours for the purpose of a psychiatric evaluation if it is determined by a certified person (emergency physician, psychiatrist, psychiatric nurse or orthotic and prosthetic technician, police artist or heel attacher wood's deputy) that you are: ???A danger to yourself or others, or ???Not able to care for yourself, or ???Gravely disabled This is true even if you do not consent to this. Follow-up care Upon release, please follow up with your doctor for continued medical care. Call 911 Call 911 if you have suicidal thoughts, a suicide plan, and the means to carry out the plan, or serious thoughts of hurting someone else. When to seek medical advice Call your healthcare provider or emergency services right away if any of the following occur: ???Current symptoms gradually or suddenly return ???Feeling extreme depression, anxiety or anger toward yourself or others ???Feeling out of control ???Feeling that you may try to harm yourself or someone else ???Hearing voices that others do not hear ???Seeing things that others do not see ???Having extreme mood swings ???Not able to sleep or eat for 3 days in a row ???Family or friends express concern over your well-being and behaviors and ask you to seek help ?? 5507-8244 [employer] [address] [facility], [place] [address]. All rights reserved. This information is not intended as a substitute for professional medical care. Always follow your healthcare professional's instructions. 06/09/2020 20:25:20Recognizing Suicide Warning Signs in YourselfRecognizing Suicide Warning Signs in Yourself People who are thinking about suicide may not know they are depressed. Certain thoughts, feelings, and actions can be signals that let you know you may need help. The best thing you can do is watch forsigns that you may be at risk. Then, ask for help. You can talk to your regular healthcare provider or seek help from a mental health provider. Depression Depression is a treatable illness. To know if depression is causing you to feel like ending your life, ask yourself: ???Do I feel worthless, guilty, helpless, or hopeless?Have I been feeling sad, down, or blue on most days?Have I lost interest in my work or people I used to enjoy?Do I have trouble sleeping or do I sleep too much?Do I eat more or less than usual?Do I feel tired, weak, and low on energy?Do I feel restless and unable to sit still?Do I have trouble thinking or making choices?Do I cry more than usual?Do I feel life isn't worth living? Warning signs for suicide ???Thinking often about taking your life ???Planning how you may attempt it ???Talking or writing about committing suicide ???Feeling that is the only solution to your problems ???Feeling a pressing need to make out your will or arrange your ???Giving away things you own ???Participating in risky behaviors, such as sex with someone you don't know or drinking and driving ???Buying a lethal weapon, such as a gun, or hoarding medicines that could be used in an over dose If you notice any of these warning signs, call for help right away or go to your closest hospital emergency department. You can also call a mental health clinic or a 24-hour suicide crisis hotline for help and support. Search for local suicide prevention resources on your computer or look for the number in the white pages of your phone book under Suicide. In an emergency, if you are in immediate risk of harming yourself, call 911. For more information about depression: ???National [place] of Mental Health 278-812-8094 www.nimh.nih.gov ???National Suicide Prevention Lifeline 956-756-3315 (971-957-FUTA) www.suicidepreventionlifeline.org ???National [place] on Mental Illness 609-623-3165 www.kacie.org ???Mental Health [facility] 451-783-8621 www.[facility].org ???National Suicide Hotline 718-525-9540 (800-SUICIDE) ?? 8652-6541 [employer]. [address] [place] [address]. All rights reserved. This information is not intended as a substitute for professional medical care. Always follow your healthcare professional's instructions. Follow Up Care06/09/2020 15:21:31With:Sebas Fernandez Address: [address] [place] [phone] Business (1) When:5 to 7 days Comments:Call for follow-up appointmentIf symptoms worsen, go to Emergency Dept Mental Status 06/09/20 Barriers to Learning None evident Languages Moroccan
--- OUTSIDE RECORDS SUMMARY | 2022-10-25 10:22 | XMS_ITS ---
:1980 Author Organization [facility] nter Address [address] [place] [address] [address] [address] [place] [address]- Care Team Providers Name Role Phone Sebas Fernandez M.D. Primary Care Physician Encounter Date(s): 09/08/20 - 09/08/[address] [address]- [place] [phone] Encounter Diagnosis Abnormal chest x-ray (Discharge Diagnosis) - 09/08/20 Varicella-zoster (Discharge Diagnosis) - 09/08/20 Tobacco abuse (Discharge Diagnosis) - 09/08/20 Discharge Disposition: 01 Home or Self Care Attending Physician: VERA RUDOLPH MD Admitting Physician: PHYSICIAN , EMERGENCY Allergies, Adverse Reactions, Alerts Substance Reaction Severity Status sulfa drugs rash Active Discharge Medications acetaminophen-oxycodone (Percocet 5 mg-325 mg oral tab let) Status: Ordered Start Date: 09/08/20 Stop Date: 09/13/20 1 tab(s) Oral every six (6) hours as nee ded Pain for 5 Days. Acute pain exception. Refills: 0. Ordering provider: VERA RUDOLPH MD acyclovir (acyclovir 800 mg oral tablet) Status: Ordered Start Date: 09/08/20 Stop Date: 09/15/20 1 tab(s) Oral five (5) times a day for 7 Days. Refills : 0. Ordering provider: VERA RUDOLPH MD doxycycline (doxycycline hyclate 100 mg oral [...] 2 3 [Reference Range]: Temperature Oral [36-37.9 36.9 DegC 36.6 DegC DegC] (09/08/20 7:30 PM) (09/08/20 5:27 PM) Peripheral Pulse Rate 84 bpm [60-100 bpm] (09/08/20 5:27 PM) Heart Rate Monitored [60-100 81 bpm 76 bpm bpm] (09/08/20 7:30 PM) (09/08/20 6:30 PM) Respiratory Rate [ 16 br/min 18 br/min 18 br/mi n br/min] (09/08/20 7:30 PM) (09/08/20 6:30 PM) (09/08/20 5:27 PM) Blood Pressure [90-140/60-90 135/86 mmHg 126/90 mmHg 126 /79 mmHg mmHg] (09/08/20 7:30 PM) (09/08/20 6:30 PM) (09/08/20 5:27 PM) Mean Arterial Pressure 102 mmHg (09/08/20 6:30 PM) Results Laboratory List Name Date Automated Differential 09/08/20 CBC with Diff 09/08/20 Chemistry Panel 7 (CHEM7) 09/08/20 Extra Blue Label 09/08/20 Extra Green Label 09/08/20 Glomerular Filtration Rate Calculation 09/08/20 Most recent to oldest [Reference Range]: 1 Draw Hold Comment Collected *NA* (09/08/20 6:10 PM) Creatinine [0.7-1.3 mg/dL] 0.7 mg/dL (09/08/20 6:10 PM) Basophil Auto [0.0-1.0 %] 0.8 % (09/08/20 6:10 PM) BUN [7-18 mg/dL] 15 mg/dL (09/08/20 6:10 PM) Chloride Level [98-107 mEq/L] 107 mEq/L (09/08/20 6:10 PM) CO2 [21-32 mmol/L] 28 mmol/L (09/08/20 6:10 PM) Eos Auto [1.0-3.0 %] 7.3 % *HI* (09/08/20 6:10 PM) Glucose Level [70-100 mg/dL] 70 mg/dL (09/08/20 6:10 PM) Hct [42.0-52.0 %] 37.6 % *LOW* (09/08/20 6:10 PM) Hgb [14.0-18.0 gm/dL] 12.3 gm/dL *LOW* (09/08/20 6:10 PM) Lymph Auto [22.0-44.0 %] 21.6 % *LOW* (09/08/20 6:10 PM) MCH [27.0-31.0 pg] 28.8 pg (09/08/20 6:10 PM) MCHC [31.0-37.0 gm/dL] 32.6 gm/dL (09/08/20 6:10 PM) MCV [88.0-100.0 fl] 88.4 fl (09/08/20 6:10 PM) Mccone Auto [3.0-7.0 %] 7.7 % *HI* (09/08/20 6:10 PM) MPV [7.0-11.1 fl] 7.2 fl (09/08/20 6:10 PM) Neutro Auto [40.0-70.0 %] 62.6 % (09/08/20 6:10 PM) Platelet [150-450 k/mcL] 218 k/mcL (09/08/20 6:10 PM) Potassium Level [3.5-5.1 mEq/L] 3.8 mEq/L (09/08/20 6:10 PM) RBC [4.70-6.10 million/mcL] 4.26 million/mcL *LOW* (09/08/20 6:10 PM) RDW [11.5-13.5 %] 12.5 % (09/08/20 6:10 PM) Sodium Level [136-145 mEq/L] 141 mEq/L (09/08/20 6:10 PM) WBC [4.5-11.0 k/mcL] 8.2 k/mcL (09/08/20 6:10 PM) Abs Neutrophil [1.60-6.60 k/mcL] 5.13 k/mcL (09/08/20 6:10 PM) Abs Lymphocyte [0.90-3.90 k/mcL] 1.80 k/mcL (09/08/20 6:10 PM) Abs Monocyte [0.20-1.00 k/mcL] .63 k/mcL (09/08/20 6:10 PM) Abs Eosinophil [0.00-0.40 k/mcL] .60 k/mcL *HI* (09/08/20 6:10 PM) Abs Basophil [0.00-0.10 k/mcL] .07 k/mcL (09/08/20 6:10 PM) eGFR-AA [>=60 mL/min/1.73m^2] >60 mL/min/1.73m^2 (09/08/20 6:10 PM) eGFR-MATHEUS [>=60 mL/min/1.73m^2] >60 mL/min/1.73m^2 (09/08/20 6:10 PM) Anion Gap 6 *NA* (09/08/20 6:10 PM) Draw Green Comment Collected *NA* (09/08/20 6:10 PM) Radiology Reports true Exam Date Time Procedure Performing Provider Status 09/08/20 6:26 PM DONY CHEST PORTABLE Kiki RT(R), Xavi; Auth (Verified) Notes:(DONY CHEST PORTABLE) Reason For Exam: Chest PainACC#: [id number] Examination: Xray, Chest, 1 View Clinical Indication: Chest Pain; Comparison: 09/19/2018 Findings: Single frontal view of the chest demonstrates the cardiomediastinal silhouette to be within normal limits. There are no pleural effusions or pneumothoraces identified. There are no focal areas of consolidation. Left hilar fullness may reflect adenopathy. Follow-up with CT scan of the chest can be obtained on nonemergent basis Impression: No acute cardiopulmonary disease. Question left hilar adenopathy. Follow-up with CT scan of the chest for further detail nonemergent basis Final Dictated: 09/08/2020 6:29 pm ABIGAIL MINOR DO Signed (Electronic Signature): 09/08/2020 6:30 pm Signed by: ABIGAIL MINOR DO Social History Social History Type Response Smoking Status 10 or more cigarettes (1/2 p ack or more)/day in last 30 days entered on: 09/08/20 Sex Male Hospital Discharge Instructions Patient Qlymqtteo13/14/2020 18:59:56Smoking CessationHow to Quit Smoking Smoking is a hard habit to break. About 50% of all??people who have ever smoked have been able to quit. Most people??who still smoke want to quit. Here are some of the best ways to stop smoking. Keep in mind the health benefits of quitting The health benefits of quitting start right away. They keep improving the longer you go without smoking. Knowing this can help inspire you to stay on track. These benefits occur at any age. If you are 17 or 70, quitting is a good choice. Some of the health benefits after your last cigarette include: ??? After 20 minutes: Your blood pressure and pulse return to normal. ??? After 8 hours: Your oxygen levels return to normal. ??? After 2 days: Your ability to smell and taste start to improve as damaged nerves regrow. ??? After 2 to 3 weeks: Your circulation and lung function improve. ??? After 1 to 9 months: Your coughing, congestion, and shortness of breath decrease. Your tirednessdecreases. ??? After 1 year: Your risk of heart attack decreases by 50%. ??? After 5 years: Your risk of lung cancer decreases by 50%. Your risk of stroke becomes the same as a nonsmoker???s. Go cold turkey Most??former smokers quit cold turkey. This means stopping all at once. Trying to cut back slowly often doesn't work as well. This may be because it continues the habit of smoking. Also you may inhale more smoke while smoking fewer cigarettes. This leads to the same amount of nicotine in your body. Get support Support programs can be a big help, especially for heavy smokers. These groups offer lectures, ways to change behavior, and peer support. Here are some ways to find a support program: ??? Free national quitline 386-SZPU-HHJ (389-261-5811) ??? Hospital quit-smoking programs ??? [place] [employer] 828-827-2205 ??? [place] [employer] 472-471-9699 Support at home is important too. Family and friends can offer praise and reassurance. If the smokerin your life finds it hard to quit, encourage them to keep trying. Try hitr-yqk-oievvxn medicine Nicotine replacement therapy??may make it??easier to quit. Some aids are available without a prescription. These include a nicotine patch, gum, and lozenges. But it's best to use these under the care of your healthcare provider. The skin patch gives a steady supply of nicotine. Nicotine gum and lozenges give??short-time doses of low levels of nicotine. Both methods reduce the craving for cigarettes. If you??have nausea, vomiting, dizziness, weakness, or a fast heartbeat, stop using these products. See your provider. Ask about prescription medicine After reviewing??your smoking patterns and past attempts to quit, your healthcare provider may offera prescription medicine such as bupropion, varenicline, a nicotine inhaler, or nasal spray. Each hasadvantages and side effects. Your provider can review these with you. Keep trying Most smokers make many attempts at quitting before they succeed. It???s important not to give up. To learn more For more on how to quit smoking, try these resources: ??? www.cdc.gov/tobacco/quit_smoking/ 704-YJGF-TWL (904-457-4449) ??? www.smokefree.gov 271-76L-BSVD (318-328-7903) ??? www.lung.org/stop-smoking/ 800-LUNGUSA (392-771-5303) ?? 8546-9901 [employer]. [address] [place] [address]. All rights reserved. This information is not intended as a substitute for professional medical care. Always follow your healthcare professional's instructions. Your chest x-ray today showed:Examination: Xray, Chest, 1 View Clinical Indication: Chest Pain; Comparison: 09/19/2018 Findings: Single frontal view of the chest demonstrates the cardiomediastinal silhouette to be within normal limits. There are no pleural effusions or pneumothoraces identified. There are no focal areas of consolidation. Left hilar fullness may reflect adenopathy. Follow-up with CT scan of the chest can be obtained on nonemergent basis Impression: No acute cardiopulmonary disease. Question left hilar adenopathy. Follow-up with CT scan of the chest for further detail nonemergent basis 09/08/2020 18:59:56Shingles (Herpes Zoster)Shingles (Herpes Zoster) Talk to your healthcare provider about the shingles vaccine. Shingles is also called herpes zoster. It's a painful skin rash caused by the herpes zoster virus. This is the same virus that causes chickenpox. After a person??has chickenpox, the virus stays inactive in the nerve cells. Years later, the virus can become active again and travel along the nerve to the skin. Most people have shingles only once. But it's possible to have it more than once. Who is at risk for shingles? Anyone who has ever had chickenpox can get shingles. But your risk is greater if you: ???Are age 50 or older ???Have an illness that weakens your immune system, such as HIV/AIDS ???Have cancer, especially Hodgkin disease or lymphoma ???Take medicines that weaken your immune system What are the symptoms of shingles?The first sign of shingles is often pain, burning, tingling, or itching on one part of your face or body. You may also feel as if you have the flu, with fever and chills. ???A red rash with small blisters appears in a few days. The rash may look as follows:?? oThe blisters can occur anywhere, but they???re most common on the back, chest, or belly (abdomen). oThey usually appear on only one side of the body, spreading along the nerve pathway where the virusis reactivating.?? oThe rash can also form around an eye, along one side of the face or neck, or in the mouth. oIn a few people, often those with a weak immune system,??shingles appear on more than one part of the body at once. ???After a few days, the blisters become dry and form a crust. The crust falls off in days to weeks.The blisters generally don't leave scars. But they can in severe cases. Or if someone has a weak immune system. How is shingles treated? For most people, shingles heals on its own in a few days or weeks. But treatment is advised to??helpease pain, speed healing, and reduce the risk of complications.??Antiviral medicines are most often only prescribed if you are seen by a healthcare provider within the first 72 hours of having the rash. But antiviral medicines may be prescribed even after 72 hours if someone's immune system is weak. Or if the infection is extensive, severe, or isn't going away.??To reduce symptoms: ???Apply ice packs or cool compresses, or soak in a cool bath. To make an ice pack, put ice cubes osvaldo plastic bag that seals at the top. Wrap the bag in a clean, thin towel or cloth. Never put ice or an ice pack directly on the skin. ???Use calamine lotion to calm itchy skin. ???Ask your provider about fika-clz-ddtpacz pain relievers. If your pain is severe, your provider may prescribe stronger pain medicines. What are possible complications??of shingles? Shingles often goes away with no lasting effects. But some people have complications during or afterthe infection comes out: ???Postherpetic neuralgia.??This is the most common complication. It's more likely as people age, especially after age 60. It' is nerve pain at the place where the rash used to be. It can range from mild to severe. It can last for only a few days, or for months or even years after you have had shingles. Antiviral medicines given during the first 72 hours of the rash can reduce the chance of postherpetic neuralgia. Other medicines can be prescribed to help ease the pain and improve quality of life. ???Bacterial infection.??Shingles blisters may get infected with bacteria. Depending on the severityof the infection, topical, oral or IV (intravenous) antibiotic medicine is used to treat the infection. ???Eye problems. If you have shingles on the face, see your healthcare provider right away. Shinglescan cause serious problems with vision, and even blindness. In very rare cases, shingles can also lead to pneumonia, hearing problems, brain inflammation, or even .?? When to get medical care Call your healthcare provider if you have any of these: ???New symptoms or symptoms that don???t go away with treatment ???A rash or blisters near your eye ???More drainage, fever, or rash after treatment ???Severe pain that doesn???t go away How can shingles be prevented? You can only get shingles if you have had chickenpox in the past. Someone who never had chickenpox can get the virus from you. But instead of have shingles, the person may get chickenpox. Until your blisters form scabs, don't have any contact with others, especially the following: ??? women who have never had chickenpox or the vaccine ???Babies who were born early (premature) or who had low weight at ???People with weak immune systems (such as people getting chemotherapy for cancer, people who have had organ transplants, or people with HIV infections), particularly if they have never had chicken pox. The shingles vaccine Two shingles vaccines are available to help prevent shingles or make it less painful: ???Zoster vaccine live (ZVL) ???Recombinant zoster vaccine (RZV). This is a newer vaccine that has been available since 2017. You should get the shingles vaccine if you are healthy and age 50 or older, even if you've had shingles in the past. Two shots of the RZV vaccine are recommended. You should get the second RZV shot 2 to 6 months after the first. The vaccine makes it less likely that you will develop shingles. If you do develop shingles, your symptoms will likely be milder than if you hadn???t been vaccinated. RZV is also advised even if you had the older shingles vaccine in the past. That's because the RZV vaccine works better and protects you from shingles longer. Talk with your healthcare provider about the best time to get vaccinated. Ask which vaccine is best for you based on your age and health conditions. ?? 8322-4679 [employer]. [address] [place] [address], [place] [address]. All rights reserved. This information is not intended as a substitute for professional medical care. Always follow your healthcare professional's instructions. Follow Up Care09/08/2020 17:27:09With:Sebas Fernandez Address: [address] [place] [id number] [phone] Business (1) When:5 to 7 days Comments:If symptoms worsen, go to Emergency Dept Mental Status 09/08/20 Barriers to Learning None evident Languages Portuguese
[2022-10-25 10:33] LABS: Alanine Aminotransferase 27 U/L (0-40); Albumin Level 4.6 g/dL (3.5-5.0); Alkaline Phosphatase 68 U/L (39-117); Anion Gap 14 (12-20); Aspartate Amino Transferase 27 U/L (5-37); Bilirubin Total 0.9 mg/dL (0.0-1.0); Blood Urea Nitrogen 21 mg/dL (9-16); Calcium 9.9 mg/dL (8.4-10.2); Carbon Dioxide 26 mmol/L (22-29); Chloride 102 mmol/L (96-108); Estimated Glomerular Filt Rate > 60; Glucose Random 92 mg/dL (60-115); Lipase 18 U/L (8-78); Magnesium 2.1 mg/dL (1.6-2.6); Potassium 3.9 mmol/L (3.3-5.1); Sodium 138 mmol/L (135-145); Total Protein 7.9 g/dL (6.5-8.0)
--- NOTE | 2022-10-25 10:36 | ECG_ITS ---
Test Reason : Epigastric pain Blood Pressure : / mmHG Vent. Rate : 067 BPM Atrial Rate : 067 BPM P-R Int : 118 ms QRS Dur : 104 ms QT Int : 388 ms P-R-T Axes : 004 031 048 degrees QTc Int : 409 ms Normal sinus rhythm with sinus arrhythmia Normal ECG When compared with ECG of 22-JUN-2015 19:39, No significant change was found Referred By: Gela Chavarria Electronically Signed By:LESTER ROMAN MD
[2022-10-25] MEDS: Ketorolac Tromethamine 15 MG/ML VIAL IVPUSH (10:39)
[2022-10-25] MEDS: 0.9 % Sodium Chloride 1,000 ML 999 ML IV ×2 (10:39→10:46)
[2022-10-25] MEDS: ondansetron HCL 4 MG/2 ML VIAL IVPUSH (10:40)
[2022-10-25] MEDS: Famotidine/PF 20 MG/2 ML VIAL IVPUSH (10:40)
[2022-10-25 10:41] VITALS: BP 159/96; PULSE 66; RESP 18; O2SAT 99
[2022-10-25 10:53] LABS: Influenza A PCR NEGATIVE (Negative); Influenza B PCR NEGATIVE (Negative); Resp Syncy Virus RNA Qual PCR NEGATIVE (Negative); SARS COV2 PCR INHOUSE NEGATIVE (Negative)
[2022-10-25 11:27] LABS: Lactic Acid 1.7 mmol/L (0.5-2.0)
[2022-10-25 11:31] LABS: Troponin-I High Sensitivity < 3.5 ng/L (<3.5-35.0)
[2022-10-25 11:59] VITALS: BP 148/92; PULSE 68; RESP 18; TEMP 37; O2SAT 100
[2022-10-25] MEDS: Albuterol Sulfate 90 MCG 8 GM INHALER 4 PUFF INHALE (12:03)
[2022-10-25 12:04] VITALS: PULSE 67; RESP 16; O2SAT 100
--- NOTE | 2022-10-25 12:47 | PC.NURSE ---
pt dry heaving, reporting some increased nausea, provider notified, ivf runnning.
[2022-10-25] MEDS: Metoclopramide HCl 10 MG/2 ML VIAL IVPUSH (12:54)
[2022-10-25] MEDS: diphenhydrAMINE HCL 50 MG/ML VIAL 25 MG IVPUSH (12:54)
[2022-10-25 13:21] LABS: Amphetamine Screen Urine Not Detected (Not Detect); Barbiturates, Urine Not Detected (Not Detect); Benzodiazepines Screen Urine Not Detected (Not Detect); Cannabinoid Screen Urine Not Detected (Not Detect); Cocaine Screen Urine Not Detected (Not Detect); Fentanyl, urine Not Detected (Not Detect); Opiate Screen Urine Not Detected (Not Detect); Phencyclidine Screen Urine Not Detected (Not Detect)
[2022-10-25 13:25] LABS: Appearance Urine Clear; Color Urine Dark Yellow; Glucose Urine UA Negative (Negative); Leukocyte Esterase Urine Negative (Negative); Nitrite Urine Negative (Negative); PH 5.5 (5.0-9.0); Specific Gravity - Urine >= 1.030 (1.005-1.025); UMIC TRIGGER UACC YES; Urine Blood Trace (Negative); Urine Ketones 80 mg/dL (Negative); Urine Protein Trace mg/dL (Neg-Trace)
[2022-10-25 13:27] LABS: Bacteria Urine None Seen (None Seen); Squamous Epithelial Cell Urine 0-2 /HPF (0-2); WBC Urine 0-5 /HPF (0-5)
[2022-10-25 14:00] VITALS: BP 151/83; PULSE 65; RESP 18; O2SAT 98
--- NOTE | 2022-10-25 14:22 | PC.NURSE ---
pt reports that he is feeling slightly better, vss, pt pending CT.
[2022-10-25] MEDS: iohexoL 350 MG/ML 100 ML INFUS..BTL IV (14:41)
[2022-10-25 15:24] VITALS: BP 168/83; PULSE 67; RESP 18; O2SAT 100
[2022-10-25] MEDS: Lidocaine HCl Viscous 2 % 15 ML SOLUTION 5 ML MUCOUS MEM (15:36)
[2022-10-25] MEDS: Prochlorperazine Edisylate 10 MG/2 ML VIAL 5 MG IVPUSH (15:36)
[2022-10-25 15:54] LABS: Troponin-I High Sensitivity < 3.5 ng/L (<3.5-35.0)
--- NOTE | 2022-10-25 16:00 | PC.NURSE ---
pt given choco luis, crackers and ice chips for PO challenge.
--- NOTE | 2022-10-25 16:30 | PC.NURSE ---
pt tolerated PO challenge, IV removed, plan to dishcarge.
== END 2022-10-25 16:42 | disposition home or self-care (01) ==
PROVIDERS: Physician Assistant; Emergency Provider Emergency Medicine
DX: R11.2 Nausea with vomiting, unspecified (principal); Z20.828 Contact with and (suspected) exposure to other viral communicable diseases; J45.909 Unspecified asthma, uncomplicated; Z79.899 Other long term (current) drug therapy
CPT/HCPCS: 0241U; 36415; 71045; 74177; 80053; 80307; 81001; 83605; 83690; 83735; 84484; 85025; 87040; 93005; 94640; 96361; 96374; 96375; 99284; 99285; J1200; J1885; J2405; J2765; Q9967